=== PATIENT | female | born 2000 | race Caucasian/White ===

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

== ENCOUNTER 2022-11-07 15:56 | Inpatient (IN) | payer OTHER, SELFPAY ==
[2022-11-07] VITALS (9 sets, daily range): BP systolic 150–165; BP diastolic 78–99; PULSE 86–104; RESP 12–23; TEMP 35.7; O2SAT 97–99; BMI 39.1
[2022-11-07] MEDS: MAG HYDROX/ALUMINUM/SIMETH SUS 20 ML, LIDOCAINE VISCOUS 2% 15 ML PO (16:06)
[2022-11-07] MEDS: PANTOPRAZOLE 40 MG VIAL IV (19:31)
[2022-11-07] MEDS: SODIUM CHLORIDE 0.9% 1,000 ML 1000 ML IV (19:31)
[2022-11-07 19:32] LABS: Add Manual Diff / Slide Review NO; Basophils Absolute Auto 0 /uL (0-100); Basophils Percent Auto 0.4 % (0-2); Eosinophils Absolute Auto 100 /uL (0-450); Eosinophils Percent Auto 0.5 % (2-4); Hematocrit 40.2 % (36-46); Hemoglobin 13.5 g/dL (12.0-16.0); Lymphocytes Absolute Auto 1700 /uL (1100-4500); Lymphocytes Percent Auto 14.9 % (25-40); Mean Corpuscular HGB Conc 33.6 % (30-36); Mean Corpuscular Hemoglobin 27.9 PG (26-34); Monocytes Absolute Auto 700 /uL (0-900); Monocytes Percent Auto 5.9 % (3-14); Neutrophils Absolute Auto 9100 /uL (1500-7000); Neutrophils Percent Auto 78.3 % (50-75); Platelet Count 276 X10^3/uL (150-400); Red Blood Cell Count 4.85 X10^6/uL (4.0-5.2); Red Cell Distribution Width 14.4 % (11.6-14.8); White Blood Cell Count 11.6 X10^3/uL (4.5-11.0)
[2022-11-07 19:46] LABS: Alanine Aminotransferase 47 IU/L (<35); Albumin 4.3 g/dL (3.5-5.0); Alkaline Phosphatase 155 U/L (38-126); Aspartate Aminotransferase 99 IU/L (14-36); BUN Creatinine Ratio 14.5 (6-22); Bilirubin Total 0.8 mg/dL (0.2-1.3); Blood Urea Nitrogen 9 mg/dL (7-17); Calcium 9.5 mg/dL (8.4-10.2); Carbon Dioxide 27 mmol/L (22-32); Chloride 101 mmol/L (98-107); Estimated Glomerular Filt Rate > 60 mL/min (>60); Globulin 4.1 g/dL (1.7-4.1); Glucose 115 mg/dL (70-100); HEMOLYSIS < 15 (0-50); Lipase 125 U/L (23-300); Potassium 3.7 mmol/L (3.4-5.1); Sodium 140 mmol/L (137-145); Total Protein 8.4 g/dL (6.3-8.2)
[2022-11-07 19:58] LABS: Bacteria Urine Occasional (0-1); Culture Indicated Urine Cult Not Indicated; Other Crystals Urine 1+ Amorphous; RBC Urine None Seen (0-5/HPF); Squamous Epithelial Cell Urine 5-10 /HPF (0-5/HPF); WBC Urine None Seen (0-5/HPF)
--- NOTE | 2022-11-07 20:13 | ED.ABDPAIN ---
HPI - Abdominal Pain General Chief Complaint: Abdominal Pain Stated Complaint: intense stomach and chest pains Time Seen by Provider: 11/07/22 18:15 Source: patient Mode of arrival: Ambulatory History of Present Illness HPI narrative: 22-year-old female nonsmoker with history of reflux presents with her significant other and a chief complaint of severe epigastric pain over the course of the day. She states it is very intense and in her epigastrium as well as right upper quadrant and radiates to her back. She is nauseated but denies any vomiting. She is had no fever or chills. She denies any chest pain or shortness of breath. She denies any diarrhea, constipation or urinary complaints. Related Data Previous Rx's Medication Instructions Recorded bupropion HCl 150 mg 24 hr tablet, 300 mg PO QAM #180 tabs 04/06/22 extended release (Wellbutrin XL) lamotrigine 100 mg tablet 150 mg PO BEDTIME #45 tabs 10/25/22 norgestimate 0.25 mg-ethinyl 1 tab PO DAILY #84 tabs 10/27/22 estradiol 35 mcg tablet (Sprintec (28)) Allergies Allergy/AdvReac Type Severity Reaction Status Date / Time latex Allergy Severe skin Verified 11/07/22 16:03 blisters, redness and very itchy medroxyprogesterone AdvReac Severe Severe Verified 11/07/22 16:03 [From Depo-Provera] depression & anxiety; mood swings human papillomavirus AdvReac Intermediate Swelling Verified 11/07/22 16:05 vaccine, 9-valent redness [From Gardasil 9 (PF)] and pain at injection site Review of Systems Review of Systems Narrative: GENERAL: Denies chills, fatigue, malaise, fever, sweats. HEENT: Denies sinus pain, ear pain, sore throat, difficulty swallowing, dizziness. RESPIRATORY: Denies dyspnea, cough, wheezing, hemoptysis, sputum. CARDIOVASCULAR: Denies chest pain, palpitations, orthopnea, edema, GASTROINTESTINAL: See HPI : Denies dysuria, frequency, incontinence, hematuria, urinary retention. MUSCULOSKELETAL: denies weakness, joint pain, or bony pain SKIN: Denies rash, skin lesions, or other NEUROLOGIC: Denies weakness, headache, numbness, change in speech, confusion, seizures, incoordination. PSYCHIATRIC: No concerning psychosocial issues. 12 point review of systems is negative except for those stated above Patient History Medical History Anxiety Depression Elevated BP without diagnosis of hypertension Head injury Personal history of COVID-19 Recurrent dislocation of patella, right knee Surgical History Status post myringotomy with insertion of tube (10/29/04) Family History Grandmother Age: 74 Hypothyroidism Type 2 diabetes mellitus Mother Age: 45 Polycystic ovaries Obesity Hypothyroidism Grandmother Age: 72 Hypothyroidism Social History household members: significant other Smoking Status: Never smoker alcohol intake: never Smoking Status: Never smoker alcohol intake frequency: 0-2 drinks per day Substance Use Type: marijuana Exam Narrative Exam Narrative: GENERAL: [22] year old patient appears stated age. Well-developed patient, in mild distress. HEAD: Atraumatic. Normocephalic. EYES: Pupils equal round and reactive. Extraocular motions intact. No scleral icterus. No injection or drainage. ENT: Nose without bleeding, purulent drainage. Throat without erythema, tonsillar hypertrophy or exudate. Airway patent. NECK: Trachea midline. Non tender CARDIOVASCULAR: Regular rate and rhythm without murmurs, gallops, or rubs. RESPIRATORY: Clear to auscultation. Breath sounds equal bilaterally. No wheezes, rales, or rhonchi. GASTROINTESTINAL: Abdomen soft, tender in the epigastric, nondistended. EXTREMITIES: No edema or joint tenderness. BACK: Nontender without deformity or crepitance. No flank tenderness. NEURO: AOx3. SKIN: No rash or erythema of visible areas Initial Vital Signs Initial Vital Signs: Vital Signs Temperature 96.3 F L 11/07/22 16:00 Pulse Rate 99 H 11/07/22 16:00 Respiratory Rate 17 11/07/22 16:00 Blood Pressure 165/96 H 11/07/22 16:00 Pulse Oximetry 99 11/07/22 16:00 Oxygen Delivery Method Room Air 11/07/22 16:00 Course Orders Ordered: ED Orders 11/07/22 17:39 EKG-12 Lead Stat 11/07/22 19:14 Urine Microscopic Stat 11/07/22 19:26 Complete Blood Count AUTO DIFF Stat Comprehensive Metabolic Panel Stat Lipase Stat 11/07/22 20:18 US abdomen limited Stat 11/07/22 21:31 COVID19 -Nasal RAPID Stat Acetaminophen (Acetaminophen 325 Mg Tablet) 975 mg PO Q6H [facility] Last Admin: 11/07/22 22:53 Dose: 975 mg Documented By: KYLEE Docusate Sodium (Docusate 100 Mg Capsule) 100 mg PO BID [facility] Enoxaparin Sodium (Enoxaparin 30 Mg/0.3 Ml Syringe) 30 mg SUBCUT BID [facility] Hydromorphone HCl (Hydromorphone 0.5 Mg Inj) 0.5 mg IV Q2H PRN PRN Reason: Pain, Severe (7-10) Hydromorphone HCl (Hydromorphone 1 Mg Inj) 1 mg IV Q3H PRN PRN Reason: Breakthrough Pain Sodium Chloride (Normal Saline 0.9%) 1,000 mls @ 100 mls/hr IV CONT [facility] Last Admin: 11/07/22 22:54 Dose: 100 mls/hr Documented By: KYLEE Ampicillin Sodium/Sulbactam (Sodium 3 gm/ Sodium Chloride) 100 mls @ 200 mls/hr IV Q8H [facility] Ibuprofen (Ibuprofen 600 Mg Tablet) 800 mg PO Q6H [facility] Last Admin: 11/07/22 22:52 Dose: Not Given Documented By: KYLEE Ketorolac Tromethamine (Ketorolac 30 Mg/Ml Vial) 30 mg IV Q6H [facility] Stop: 11/08/22 15:00 Last Admin: 11/07/22 23:07 Dose: 30 mg Documented By: KYLEE Naloxone HCl (Naloxone 0.4 Mg/Ml Vial) 0.2 mg IV Q2MIN PRN PRN Reason: Opiate Reversal Ondansetron HCl (Ondansetron 4 Mg/2 Ml Inj) 4 mg IV Q4HR PRN PRN Reason: Nausea And Vomiting Last Admin: 11/07/22 23:47 Dose: 4 mg Documented By: HIAM Oxycodone HCl (Oxycodone Ir 5 Mg Tablet) 5 mg PO Q3H PRN PRN Reason: Pain, Moderate (4-6) Oxycodone HCl (Oxycodone Ir 10 Mg Tablet) 10 mg PO Q3H PRN PRN Reason: Pain, Severe (7-10) Discontinued Medications Al Hydrox/Mg Hydrox/Simethicone 20 ml/ Lidocaine HCl 15 ml 0 ml PO NOW ONE Stop: 11/07/22 16:05 Last Admin: 11/07/22 16:06 Dose: 35 ml Documented By: CASE Hydromorphone HCl (Hydromorphone 0.5 Mg Inj) 0.5 mg IV NOW ONE Stop: 11/07/22 20:20 Last Admin: 11/07/22 20:31 Dose: 0.5 mg Documented By: KEON Hydromorphone HCl (Hydromorphone 0.5 Mg Inj) 0.5 mg IV NOW ONE Stop: 11/07/22 21:29 Last Admin: 11/07/22 21:51 Dose: 0.5 mg Documented By: KEON Sodium Chloride (Normal Saline 0.9%) 1,000 mls @ 1,000 mls/hr IV BOLUS ONE Stop: 11/07/22 19:14 Last Infusion: 11/07/22 20:35 Dose: 0 mls/hr Documented By: Admin: 11/07/22 19:31 Dose: 1,000 mls/hr Documented By: REINIER Ampicillin Sodium/Sulbactam (Sodium 3 gm/ Sodium Chloride) 100 mls @ 200 mls/hr IV Q8H [facility] Last Admin: 11/07/22 23:25 Dose: Not Given Documented By: HIMA Ampicillin Sodium/Sulbactam (Sodium 3 gm/ Sodium Chloride) 100 mls @ 200 mls/hr IV NOW ONE Stop: 11/07/22 21:46 Last Admin: 11/07/22 23:02 Dose: 200 mls/hr Documented By: KYLEE Ondansetron HCl (Ondansetron 4 Mg/2 Ml Inj) 4 mg IV NOW ONE Stop: 11/07/22 20:20 Last Admin: 11/07/22 20:32 Dose: 4 mg Documented By: KEON Ondansetron HCl (Ondansetron 4 Mg Odt) 4 mg PO Q4HR PRN PRN Reason: Nausea And Vomiting Last Admin: 11/07/22 22:52 Dose: 4 mg Documented By: KYLEE Pantoprazole Sodium (Pantoprazole 40 Mg Vial) 40 mg IV NOW ONE Stop: 11/07/22 18:16 Last Admin: 11/07/22 19:31 Dose: 40 mg Documented By: REINIER Vital Signs Vital signs: Vital Signs - 8 hr 11/07/22 19:25 11/07/22 19:27 11/07/22 19:27 Pulse Rate 98 H 95 H Respiratory Rate 21 12 Blood Pressure 157/99 H Pulse Oximetry 99 98 Oxygen Delivery Method 11/07/22 19:30 11/07/22 19:30 11/07/22 20:00 Pulse Rate 90 89 Respiratory Rate 21 13 Blood Pressure 154/92 H Pulse Oximetry 98 99 Oxygen Delivery Method Room Air 11/07/22 20:01 11/07/22 20:01 11/07/22 20:30 Pulse Rate 86 Respiratory Rate 19 Blood Pressure 157/90 H 151/86 H Pulse Oximetry 99 Oxygen Delivery Method 11/07/22 20:30 11/07/22 21:00 11/07/22 21:30 Pulse Rate 103 H 98 H Respiratory Rate 13 23 Blood Pressure 150/78 H Pulse Oximetry 99 97 Oxygen Delivery Method 11/07/22 21:30 Pulse Rate 104 H Respiratory Rate 21 Blood Pressure Pulse Oximetry 98 Oxygen Delivery Method MDM - Abdominal Pain Lab Data 11/07/22 19:26 11/07/22 19:26 Labs: Lab Results 11/07/22 11/07/22 11/07/22 Range/Units 19:14 19:26 19:26 WBC 11.6 H (4.5-11.0) X10^3/uL RBC 4.85 (4.0-5.2) X10^6/uL Hgb 13.5 (12.0-16.0) g/dL Hct 40.2 (36-46) % MCV 83.0 (80-100) fL MCH 27.9 (26-34) PG MCHC 33.6 (30-36) % RDW 14.4 (11.6-14.8) % Plt Count 276 (150-400) X10^3/uL Neut % (Auto) 78.3 H (50-75) % Lymph % (Auto) 14.9 L (25-40) % [place] % (Auto) 5.9 (3-14) % Eos % (Auto) 0.5 L (2-4) % Baso % (Auto) 0.4 (0-2) % Neut # (Auto) 9100 H (7779-5487) /uL Lymph # (Auto) 1700 (9500-3959) /uL [place] # (Auto) 700 (0-900) /uL Eos # (Auto) 100 (0-450) /uL Baso # (Auto) 0 (0-100) /uL Sodium 140 (137-145) mmol/L Potassium 3.7 (3.4-5.1) mmol/L Chloride 101 (98-107) mmol/L Carbon Dioxide 27 (22-32) mmol/L BUN 9 (7-17) mg/dL Creatinine 0.62 (0.52-1.04) mg/dL Estimated GFR > 60 (>60) mL/min BUN/Creatinine Ratio 14.5 (6-22) Glucose 115 H (70-100) mg/dL Calcium 9.5 (8.4-10.2) mg/dL Total Bilirubin 0.8 (0.2-1.3) mg/dL AST 99 H (14-36) IU/L ALT 47 H (<35) IU/L Alkaline Phosphatase 155 H (38-126) U/L Total Protein 8.4 H (6.3-8.2) g/dL Albumin 4.3 (3.5-5.0) g/dL Globulin 4.1 (1.7-4.1) g/dL Albumin/Globulin Ratio 1.0 (1.0-2.8) Lipase 125 (23-300) U/L Urine RBC None seen (0-5/HPF) Urine WBC None seen (0-5/HPF) Ur Squamous Epith Cells 5-10 /hpf H (0-5/HPF) Other Crystals 1+ amorphous Urine Bacteria Occasional (0-1) (None) Ur Culture Indicated? Cult not indicated Point of care testing: Point of Care Testing Test Results Negative Urine Dip Bedside Urine Glucose Negative Bedside Urine Bilirubin - Negative Bedside Urine Ketone - Negative Urine Specific [place] 1.010 Bedside Urine Occult Blood ++ Bedside Urine pH 7.5 Bedside Urine Protein - Negative Bedside Urine Urobilinogen - Negative Bedside Urine Nitrite - Negative Bedside Urine Leukocytes - Negative Esterase MDM Narrative Medical decision making narrative: CC: 22-year-old female with epigastric pain Complicating co-morbidities: History of GERD, BMI 39 Data collected from: Patient Medical records reviewed: Prior notes reviewed in our EMR Differential considered, but not limited to: Gallbladder disease, pancreatitis, esophageal spasm, pulmonary embolism, cardiac disease versus other Exam documented above, pertinent findings include: Severe epigastric pain on exam, positive Lynne's sign, heart rate regular, lungs clear, nonlabored breathing Lab Test results independently reviewed as above. Pertinent findings: Minimal leukocytosis and relative left shift, no signs of anemia, electrolytes, renal function unremarkable, bilirubin 0.8, LFTs are minimally elevated including alk-phos of 155 Independently reviewed EKG as above Imaging studies independently reviewed: Symptomatic gallstones Consultations: Discussed with on-call surgeon, Dr. Loving, happy to accept on her service Treatments: fluids, zofran, dilaudid Re-evaluations: Some improvement, though patient did require multiple doses of pain medication Discussion: Patient with epigastric pain, right upper quadrant pain that radiates to her back with slight bump in LFTs and ultrasound demonstrating gallstones with possible pericholecystic fluid requires hospitalization for ongoing treatment, antibiotics, pain control, possible surgical intervention Discharge Plan Departure Patient Disposition: Admitted as Observation Clinical Impression: Acute cholecystitis Admit Date/Time: 11/07/22 21:30 Admit Provider: Isela Loving
--- NOTE | 2022-11-07 20:18 | DI.US.S_ITS ---
PROCEDURE: US ABDOMEN LIMITED INDICATIONS: EPIGASTRIC PAIN TECHNIQUE: Real-time focused scanning was performed of the abdomen, with image documentation. COMPARISON: [facility], US, US ABDOMEN COMPLETE, 10/07/2021, 12:34. FINDINGS: The liver demonstrates increased no focal mass lesions. The gallbladder demonstrates 3-4 small mobile gallstones measuring up to 0.8 cm. No wall thickening or pericholecystic fluid. Patient was reportedly tender on examination. No definite intrahepatic biliary ductal dilatation. There is extrahepatic ductal dilatation with the common bile duct measuring up to 1.0 cm. Visualized pancreas appears unremarkable sonographically. IMPRESSION: 1. Cholelithiasis without evidence of cholecystitis. 2. Mild extrahepatic biliary ductal dilatation. Choledocholithiasis or biliary obstruction cannot be excluded and correlation is recommended clinically. Dictated by: Jim Rea M.D. on 11/07/2022 at 21:32 Approved by: Jim Rea M.D. on 11/07/2022 at 21:38
[2022-11-07] MEDS: HYDROMORPHONE 0.5 MG INJ IV ×2 (20:31→21:51)
[2022-11-07] MEDS: ONDANSETRON 4 MG/2 ML INJ IV ×2 (20:32→23:47)
--- NOTE | 2022-11-07 21:55 | PM.HP.1 ---
History of Present Illness History of Present Illness Date Patient Seen: 11/08/22 Time Patient Seen: 11:00 Chief complaint: intense stomach and chest pains Narrative: Ms. Candelaria is a healthy 22-year-old obese female who started having abdominal pain about 4 or 5 days ago. She said it was continuous but off and on but in the last day or so became intense and the pain was so severe that it caused her to lose her breath. She could barely say a full sentence she felt as though she was having heart attack. She had never had pain like this before. Although she may have had some ?issues? with her stomach in the past. She is was not able to connect the symptoms with any particular type of food but she did say that before this attack she had some fried food. She is not ever had surgery before but many people in her family have had gallbladder surgery. She is no family history of problems with anesthesia or bleeding or blood clotting disorders. She reports some nausea as well associated with these symptoms. [facility] Medical History Anxiety Depression Elevated BP without diagnosis of hypertension Head injury Personal history of COVID-19 Recurrent dislocation of patella, right knee Surgical History Status post myringotomy with insertion of tube (10/29/04) Family History Grandmother Age: 74 Hypothyroidism Type 2 diabetes mellitus Mother Age: 45 Polycystic ovaries Obesity Hypothyroidism Grandmother Age: 72 Hypothyroidism Social History household members: significant other Smoking Status: Never smoker alcohol intake: never Meds Home Medications and Allergies Home Medications Medication Instructions Recorded Confirmed Type bupropion HCl 150 mg 24 hr tablet, 300 mg PO QAM #180 tabs 04/06/22 11/07/22 Rx extended release (Wellbutrin XL) lamotrigine 100 mg tablet 150 mg PO BEDTIME #45 tabs 10/25/22 11/07/22 Rx norgestimate 0.25 mg-ethinyl 1 tab PO DAILY #84 tabs 10/27/22 11/07/22 Rx estradiol 35 mcg tablet (Sprintec (28)) Allergies Allergy/AdvReac Type Severity Reaction Status Date / Time latex Allergy Severe skin Verified 11/07/22 16:03 blisters, redness and very itchy medroxyprogesterone AdvReac Severe Severe Verified 11/07/22 16:03 [From Depo-Provera] depression & anxiety; mood swings human papillomavirus AdvReac Intermediate Swelling Verified 11/07/22 16:05 vaccine, 9-valent redness [From Gardasil 9 (PF)] and pain at injection site Exam Vital Signs (past 8 hours): - 11/07/22 16:00 11/07/22 19:25 11/07/22 19:27 Temperature 96.3 F L Pulse Rate 99 H 98 H Respiratory Rate 17 21 Blood Pressure 165/96 H 157/99 H Pulse Oximetry 99 99 Oxygen Delivery Method Room Air 11/07/22 19:27 11/07/22 19:30 11/07/22 19:30 Temperature Pulse Rate 95 H 90 Respiratory Rate 12 21 Blood Pressure 154/92 H Pulse Oximetry 98 98 Oxygen Delivery Method Room Air 11/07/22 20:00 11/07/22 20:01 11/07/22 20:01 Temperature Pulse Rate 89 86 Respiratory Rate 13 19 Blood Pressure 157/90 H Pulse Oximetry 99 99 Oxygen Delivery Method 11/07/22 20:30 11/07/22 20:30 11/07/22 21:00 Temperature Pulse Rate 103 H 98 H Respiratory Rate 13 23 Blood Pressure 151/86 H Pulse Oximetry 99 97 Oxygen Delivery Method Oxygen Delivery Method Room Air Const General: cooperative, healthy appearing and comfortable Nutritional Appearance: obese HENVA Head: normal to inspection Eyes General: appearance normal, both eyes and all related structures Resp Effort & Inspection: normal respiratory effort and able to speak in complete sentences Cardio Pulses: radial pulses present GI Inspection: obesity Palpation: soft and tender (Right upper quadrant. Positive Lynne sign) Skin General: no rashes or lesions noted Extrem General: normal to inspection Objective Labs 11/07/22 19:26 11/07/22 19:26 Labs: Laboratory Results - last 24 hr 11/07/22 11/07/22 11/07/22 19:14 19:26 19:26 WBC 11.6 H RBC 4.85 Hgb 13.5 Hct 40.2 MCV 83.0 MCH 27.9 MCHC 33.6 RDW 14.4 Plt Count 276 Neut % (Auto) 78.3 H Lymph % (Auto) 14.9 L [place] % (Auto) 5.9 Eos % (Auto) 0.5 L Baso % (Auto) 0.4 Neut # (Auto) 9100 H Lymph # (Auto) 1700 [place] # (Auto) 700 Eos # (Auto) 100 Baso # (Auto) 0 Sodium 140 Potassium 3.7 Chloride 101 Carbon Dioxide 27 BUN 9 Creatinine 0.62 Estimated GFR > 60 BUN/Creatinine Ratio 14.5 Glucose 115 H Calcium 9.5 Total Bilirubin 0.8 AST 99 H ALT 47 H Alkaline Phosphatase 155 H Total Protein 8.4 H Albumin 4.3 Globulin 4.1 Albumin/Globulin Ratio 1.0 Lipase 125 Urine RBC None seen Urine WBC None seen Ur Squamous Epith Cells 5-10 /hpf H Other Crystals 1+ amorphous Urine Bacteria Occasional (0-1) Ur Culture Indicated? Cult not indicated Assessment & Plan Assessment and plan (1) Acute cholecystitis: Status: Acute Assessment & Plan narrative: Labs have been reviewed and she does have a mild leukocytosis at 11. Her total bilirubin is normal at 0.8. She has a mild transaminase elevation of AST 99 and ALT 47 her alk-phos is 155. Her gallbladder ultrasound did show multiple stones no severe signs on the ultrasound of pericholecystic fluid or wall thickening however clinically she is very tender in the right upper quadrant. Clinically I think this is acute cholecystitis and I discussed with Ms. Ventura the diagnosis. I offered her the opportunity to try some antibiotics and pain medicine and possibly follow-up as outpatient but due to the level of pain and the high index of suspicion for gallbladder as the etiology she would rather undergo cholecystectomy prior to discharge which I think is very reasonable given the diagnosis of acute cholecystitis. I discussed with her the risks benefits and alternatives of laparoscopic cholecystectomy including but not limited to injury to the common bile duct, injury to other structures requiring surgery to repair them, bleeding or infection or need for ERCP postoperatively. Generally there are reasons why if something does go wrong during the operation she may have to return to the hospital for treatment or undergo an additional procedure surgery. The chances of complications are very low but could be serious and Ms. Candelaria does understand and would like to proceed with laparoscopic possible open cholecystectomy. Her questions were answered.
[2022-11-07 22:17] LABS: COVID19 -Nasal RAPID Negative (Negative)
[2022-11-07] MEDS: ONDANSETRON 4 MG ODT PO (22:52)
[2022-11-07] MEDS: ACETAMINOPHEN 325 MG TABLET 975 MG PO (22:53)
[2022-11-07] MEDS: SODIUM CHLORIDE 0.9% 1,000 ML 100 ML IV (22:54)
[2022-11-07] MEDS: AMPICILLIN/SULBACTAM 3 GM 3 GM in SODIUM CHLORIDE 0.9% 100 ML IV (23:02)
[2022-11-07] MEDS: KETOROLAC 30 MG/ML VIAL IV (23:07)
[2022-11-08] MEDS: HYDROMORPHONE 0.5 MG INJ IV ×5 (04:42→21:12)
[2022-11-08] MEDS: KETOROLAC 30 MG/ML VIAL IV ×2 (04:42→09:33)
[2022-11-08] MEDS: ONDANSETRON 4 MG/2 ML INJ IV ×4 (04:43→15:52)
[2022-11-08] MEDS: AMPICILLIN/SULBACTAM 3 GM 3 GM in SODIUM CHLORIDE 0.9% 100 ML IV ×3 (06:00→18:38)
[2022-11-08 07:00] VITALS: BP 142/80; PULSE 84; RESP 16; TEMP 36.7; O2SAT 98
[2022-11-08 09:33] VITALS: BP 142/80; PULSE 84
[2022-11-08] MEDS: PROCHLORPERAZINE 10 MG/2 ML VIAL IV ×2 (09:33→18:39)
[2022-11-08] MEDS: ENOXAPARIN 30 MG/0.3 ML SYRINGE SUBCUT ×2 (09:47→20:54)
[2022-11-08] MEDS: SODIUM CHLORIDE 0.9% 1,000 ML 100 ML IV ×2 (09:48→20:53)
--- NOTE | 2022-11-08 10:56 | CM.DANOTE ---
Initial Discharge Planning Assessment: Case reviewed, met with patient. Introduced self and role. Payer: Edy SMITH and self pay PCP: Roc Guy 22 year old female admitted yesterday with nausea and vomiting. PMH DM2 and hx of reflux with severe epigastric pain. Surgical, Dr Loving, consulted this morning. Patient lives in [place] with her significant other. She is independent and drives. Plan: When medically/surgically cleared, discharge home to care of S.O. OZ Discharge Planning/Care Management CM Discharge Assessment Start: 11/08/22 10:53 Freq: Status: Active Protocol: Document 11/08/22 10:54 SJ (Rec: 11/08/22 10:56 [id number]) Discharge Planning Assessment Assigned English Drawer Suyapa Walker RN/TAWANAP Advance Directives? No History Provided By Patient Prior Living Arrangements House Household Members significant other Type of transporation used prior to Drives own vehicle admit Independent with ADL's Yes Is patient alert and oriented? Yes Caregiver for Another No Barriers to Discharge No Discharge Plan Home Referrals Initiated None needed Review Status In Process Next Review Type Continued Stay Review
[2022-11-08 18:39] VITALS: BP 158/106; PULSE 69
[2022-11-08 19:00] VITALS: O2SAT 99
[2022-11-08 19:40] VITALS: BP 153/92; PULSE 72; RESP 18; TEMP 36.3; O2SAT 99
[2022-11-08] MEDS: lamoTRIgine 100 MG TABLET 150 MG PO (20:53)
[2022-11-08] MEDS: buPROPion XL 150 MG TAB 300 MG PO (20:53)
[2022-11-08] MEDS: DOCUSATE 100 MG CAPSULE PO (20:55)
[2022-11-08] MEDS: CALCIUM CARBONATE 500 MG TAB 1000 MG PO (22:31)
[2022-11-08] MEDS: SCOPOLAMINE 1 PATCH TOP (22:32)
[2022-11-09] VITALS (15 sets, daily range): BP systolic 119–173; BP diastolic 59–114; PULSE 60–142; RESP 16–21; TEMP 36.1–36.6; O2SAT 94–97; BMI 39.1
--- NOTE | 2022-11-09 | PATH_ITS ---
[facility] Accession Number: [id number] No. of containers..01 Tissue . 01 Material submitted: . gallbladder - GALLBLADDER . 01 Diagnosis: Gallbladder, Cholecystectomy: Chronic cholecystitis and cholelithiasis. Negative for dysplasia and neoplasia. MRV 11/11/2022 1242 Local . 01 Electronically signed: . Jessica Kelly MD, Pathologist NPI- [id number] . 01 Gross description: . The specimen is received in formalin labeled with the patient's name, , and gallbladder, and consists of an intact gallbladder measuring 9.3 x 3.4 x 2.1 cm with scruggs smooth serosa and a rough and unremarkable hepatic surface. The cystic duct is received patent, is inked blue, and two scruggs pericystic lymph node candidates are identified ranging from 0.6 to 0.8 cm in greatest dimension. The lumen contains pale green bile ranging in consistency from mucoid to semi-solid. Multiple yellow-orange bosselated calculi are identified measuring up to 0.7 cm in greatest dimension grossly obstructing the cystic duct. The mucosa is scruggs and velvety with numerous pinpoint yellow areas consistent with cholesterol. No polyps or lesions are grossly identified. The stark average 0.2 cm thick. Engraver Lettering sections to include the cystic duct margin, both intact lymph node candidates, and full thickness sections are submitted in cassettes A1-A2. ([id number]) /MRV 11/10/2022 1819 Local . 01 Pathologist provided ICD-10: K81.1 . 01 CPT . 685594 Specimen Comment: A courtesy copy of this report has been sent to [phone] Performed at: 01 [facility] [address] [place] [address] [id number] MD Jim Driver MD Phone: [phone]
[2022-11-09] MEDS: HYDROMORPHONE 0.5 MG INJ IV (00:31)
[2022-11-09] MEDS: AMPICILLIN/SULBACTAM 3 GM 3 GM in SODIUM CHLORIDE 0.9% 100 ML IV ×4 (00:31→19:25)
[2022-11-09] MEDS: PROCHLORPERAZINE 10 MG/2 ML VIAL IV ×3 (00:32→13:19)
[2022-11-09] MEDS: HYDROMORPHONE 1 MG INJ IV ×4 (02:28→13:19)
[2022-11-09] MEDS: ONDANSETRON 4 MG/2 ML INJ IV ×2 (02:30→19:33)
[2022-11-09] MEDS: SODIUM CHLORIDE 0.9% 1,000 ML 100 ML IV (08:30)
[2022-11-09] MEDS: IBUPROFEN 600 MG TABLET 800 MG PO ×2 (08:31→19:26)
[2022-11-09] MEDS: DOCUSATE 100 MG CAPSULE PO ×2 (08:31→21:02)
[2022-11-09] MEDS: ENOXAPARIN 30 MG/0.3 ML SYRINGE SUBCUT (08:44)
[2022-11-09] MEDS: ACETAMINOPHEN 325 MG TABLET 975 MG PO ×2 (08:46→19:25)
--- NOTE | 2022-11-09 10:22 | PM.PREOP ---
Pre-operative Note COVID-19 COVID-19 status: Negative Criteria for continued procedure: Continuing or worsening of significant or severe pain Interval Note History & Physical reviewed/Exam performed by Physician: Yes Changes to H&P: No
[2022-11-09] MEDS: LACTATED RINGERS 1,000 ML 84 ML IV ×2 (10:34→11:11)
--- NOTE | 2022-11-09 10:40 | PC.NURSE ---
Addendum entered by Kristi Cope R.N. 11/09/22 19:50: dressings changed per Dr Richardson instructions. float RN Roc assisted w/ this, reports approx 1.5inch blood clot removed from umbilicus puncture site. checked 1-2 hours after dressings changed, no saturation noted on clean dressings. patient is feeling a little bit better, reports pain 6/10 w/ deep breaths, and has been holding still for a while. strongly encouraged to move about the bed more. RT will assist w/ IS and flutter this NOC. patient tolerated OOB to bathroom at shift change, reports dizziness. but this ended fairly quickly. encouraged to march in place and take some deep breaths before heading to the bathroom. she became very pale and lips white when she stood up. mom assisted w/ this. teaching provided thruout the shift for bf of patient and patient. they all state they understand the instructions. tylenol and ibuprofen for BTP, patient encouraged to try this and not the narcotic. dressings provided for d/c home as we anticipated d/c earlier in the shift. ok to stay overnight x [address] feliz. report to NOC. Addendum entered by Kristi Cope R.N. 11/09/22 16:07: 1300: returned from surgery, recovered well. HR 130s post op, sang drainage on dressings. drowsy, pale. rouses easily. 1500: HR up to 145, sustaining 130s. mod amt sang drainage on all lap sites. new orders received to give LR bolus 500cc. (given) change dressings. (will do after she has had ice packs on abdomen for a little longer.) Original Note: 1015: Carrol here from OR to take patient down for surgery. mom accompanied patient for intake. pain reportedly improved from 7/10 to 1/10 w/ PRN dilauded 1mg PIV. left floor in her bed.
--- NOTE | 2022-11-09 11:00 | SUR.OPER ---
Supine on padded OR bed, head on pillow, arms secured on padded arm boards at <90 degrees abduction, legs uncrossed, safety belt at thigh, tape over blanket over lower legs.
[2022-11-09] MEDS: BUPIVACAINE 0.5% (PF) 20 ML, EPINEPHrine 0.1 MG INJ (11:13)
--- NOTE | 2022-11-09 11:41 | CM.DPC ---
Addendum entered by MAYITO Cannon 11/09/22 12:58: ADD; Per Surgeon, pt tolerated procedure well and likely can d/c home this afternoon with outpt f/u. BF Original Note: DCP Cont: Per Surgeon, pt on the schedule for surgery today for Lap Roopa and per glass edger pt on OR schedule today at 1045. Per RN, pt off floor for surgery and mother bedside and going down with pt for support. Pt active, independ and has local boyfriend and family for support and pending progress after surgery can likely d/c home later today vs tomorrow. Plan: SW to follow after Lap Roopa surg today to determine any d/c planning needs but likely home with supportive family support. MAYITO Cannon
--- NOTE | 2022-11-09 11:42 | PM.OP.1 ---
Operative Date/Time/Diagnoses Date of procedure: 11/09/22 Time of procedure: 11:42 Pre-op diagnosis: Acute cholecystitis Post-op diagnosis: same Procedure & Clinicians Procedure: Laparoscopic cholecystectomy Same procedure as scheduled: Yes Indications: Acute cholecystitis Surgeon: Jessica Savage Click Yes if Unassisted: Yes Anesthesia Type: General Operative Notes Findings: Acute cholecystitis Closure Type: primary Specimen(s): other (Gallbladder) Estimated Blood Loss (mL): 50 Procedure in detail: Preop diagnosis: Acute cholecystitis Postop diagnosis: Same Operative procedure: Laparoscopic cholecystectomy Surgeon: Ebony Savage MD Findings: Acute cholecystitis Procedure: Patient placed in a supine position. Prepped and draped sterile fashion to expose her abdomen. Supraumbilical port site was placed using open technique a 12 mm port. Insufflation began all other ports were placed under direct vision including a 10 mm port in the midepigastrium and 2 5 mm ports in the right lateral abdomen. Gallbladder was decompressed using electrocautery and suctioned. It was then grasped pushed cephalad for exposure. Cystic duct and cystic artery with both dissected free. Cystic artery was clipped once distally once proximally and transected. Cystic duct was clipped twice proximally once distally and transected. Gallbladder was removed from the fossa bed electrocautery and good hemostasis. The gallbladder was placed into an Endo-Catch bag and pulled through the infraumbilical port site intact. No spillage of stones. The surgical site was irrigated to a clear return prior to removal of ports and beginning closure. Closure consisted of interrupted 2-0 Vicryl for fascial closure of the supraumbilical port site. Skin was closed a running 4-0 Vicryl. Steri-Strips and sterile dressings were placed. Patient was awakened, extubated, taken to recovery room in stable condition with needle, instrument, sponge counts correct in the case. Blood loss: 50 mL Specimen: Gallbladder Complications: none Post-operative Condition: stable Disposition: PACU
[2022-11-09] MEDS: OXYCODONE IR 5 MG TABLET PO (11:56)
[2022-11-09] MEDS: LACTATED RINGERS 500 ML 1000 ML IV (15:36)
[2022-11-09 15:37] LABS: Add Manual Diff / Slide Review NO; Basophils Absolute Auto 0 /uL (0-100); Basophils Percent Auto 0.1 % (0-2); Eosinophils Absolute Auto 0 /uL (0-450); Hematocrit 32.8 % (36-46); Hemoglobin 10.8 g/dL (12.0-16.0); Lymphocytes Absolute Auto 800 /uL (1100-4500); Lymphocytes Percent Auto 5.8 % (25-40); Mean Corpuscular HGB Conc 32.9 % (30-36); Mean Corpuscular Hemoglobin 27.6 PG (26-34); Mean Corpuscular Volume 83.9 fL (80-100); Monocytes Absolute Auto 200 /uL (0-900); Monocytes Percent Auto 1.7 % (3-14); Neutrophils Absolute Auto 12600 /uL (1500-7000); Neutrophils Percent Auto 92.4 % (50-75); Platelet Count 318 X10^3/uL (150-400); Red Blood Cell Count 3.91 X10^6/uL (4.0-5.2); Red Cell Distribution Width 14.3 % (11.6-14.8); White Blood Cell Count 13.6 X10^3/uL (4.5-11.0)
[2022-11-09] MEDS: lamoTRIgine 100 MG TABLET 150 MG PO (21:01)
[2022-11-09] MEDS: CELECOXIB 200 MG CAPSULE PO (21:02)
--- NOTE | 2022-11-09 23:25 | PC.NURSE ---
Patient is alert and oriented although sleepy and very soft spoken. Breath sounds diminished throughout and respirations are shallow; discussed importance of CDB and encouraged to splint incision to help with pain. RA sat is 96%. HRR but tachy at 120 bpm; per previous RN MD is aware of tachycardia. Had nausea at shift change and was medicated with Zofran but denies nausea at time of assessment. BT absent; abdomen is soft but tender. Denies dysuria, frequency or urgency with urination. Is able to move herself in bed and is provided SBA when up to bathroom. Dressings to abdomen are CDI except for epigastric area dressing which has serosanguinous drainage on but within previous outlined markings. Did have abdominal pain at shift change and was medicated with Tylenol + Ibuprofen and ice pack applied with relief. Refused to wear SCD's so reminded to ankle wave. Fall risk score is moderate and bed alarm is activated.
[2022-11-09] MEDS: OXYCODONE IR 10 MG TABLET PO (23:36)
[2022-11-10] MEDS: SODIUM CHLORIDE 0.9% 1,000 ML 100 ML IV (00:25)
[2022-11-10] MEDS: AMPICILLIN/SULBACTAM 3 GM 3 GM in SODIUM CHLORIDE 0.9% 100 ML IV ×4 (00:25→18:05)
[2022-11-10 03:00] VITALS: BP 146/85; PULSE 110; RESP 20; TEMP 36.9; O2SAT 96
[2022-11-10] MEDS: IBUPROFEN 600 MG TABLET 800 MG PO (03:50)
[2022-11-10] MEDS: ACETAMINOPHEN 325 MG TABLET 975 MG PO ×4 (03:50→21:20)
[2022-11-10] MEDS: OXYCODONE IR 10 MG TABLET PO ×4 (03:54→23:49)
[2022-11-10 06:38] LABS: Add Manual Diff / Slide Review NO; Basophils Absolute Auto 0 /uL (0-100); Basophils Percent Auto 0.3 % (0-2); Eosinophils Absolute Auto 0 /uL (0-450); Eosinophils Percent Auto 0.1 % (2-4); Hematocrit 29.5 % (36-46); Hemoglobin 9.7 g/dL (12.0-16.0); Lymphocytes Absolute Auto 2100 /uL (1100-4500); Lymphocytes Percent Auto 18.2 % (25-40); Mean Corpuscular HGB Conc 32.9 % (30-36); Mean Corpuscular Hemoglobin 27.6 PG (26-34); Monocytes Absolute Auto 700 /uL (0-900); Monocytes Percent Auto 6.3 % (3-14); Neutrophils Absolute Auto 8900 /uL (1500-7000); Neutrophils Percent Auto 75.1 % (50-75); Platelet Count 265 X10^3/uL (150-400); Red Blood Cell Count 3.51 X10^6/uL (4.0-5.2); Red Cell Distribution Width 14.6 % (11.6-14.8); White Blood Cell Count 11.8 X10^3/uL (4.5-11.0)
[2022-11-10 06:54] LABS: Alanine Aminotransferase 480 IU/L (<35); Albumin 3.4 g/dL (3.5-5.0); Albumin Globulin Ratio 1.1 (1.0-2.8); Alkaline Phosphatase 269 U/L (38-126); Aspartate Aminotransferase 272 IU/L (14-36); BUN Creatinine Ratio 14.3 (6-22); Blood Urea Nitrogen 9 mg/dL (7-17); Calcium 8.5 mg/dL (8.4-10.2); Carbon Dioxide 26 mmol/L (22-32); Chloride 102 mmol/L (98-107); Estimated Glomerular Filt Rate > 60 mL/min (>60); Globulin 3.1 g/dL (1.7-4.1); Glucose 116 mg/dL (70-100); HEMOLYSIS < 15 (0-50); Potassium 3.4 mmol/L (3.4-5.1); Sodium 134 mmol/L (137-145); Total Protein 6.5 g/dL (6.3-8.2)
[2022-11-10 07:53] VITALS: BP 156/92; PULSE 114; RESP 18; TEMP 37.2; O2SAT 97
[2022-11-10] MEDS: buPROPion XL 150 MG TAB 300 MG PO (08:34)
[2022-11-10] MEDS: CELECOXIB 200 MG CAPSULE PO ×2 (08:35→21:20)
[2022-11-10] MEDS: DOCUSATE 100 MG CAPSULE PO ×2 (08:35→21:20)
--- NOTE | 2022-11-10 09:55 | DI.NM.S_ITS ---
PROCEDURE: NM HIDA NO EJECTION FRACTION RADIOPHARMACEUTICAL: 5.3 mCi Tc-99m mebrofenin IV. INDICATIONS: bile leak post op TECHNIQUE: Following intravenous administration of Tc-99m mebrofenin, sequential anterior abdominal images were obtained through at least 60 minutes. COMPARISON: [facility], CT, CT ABDOMEN PELVIS W CON, 11/10/2022, 16:47. FINDINGS: There is normal tracer uptake and excretion by the liver. There is no visualization of intrahepatic ducts or common bile duct. There is excretion of contrast into the gallbladder fossa. IMPRESSION: Findings are suspicious for post cholecystectomy bile leak. Dictated by: Trey Rojas M.D. on 11/10/2022 at 17:41 Approved by: Trey Rojas M.D. on 11/10/2022 at 17:43
[2022-11-10] MEDS: IBUPROFEN 400 MG TABLET 800 MG PO ×3 (10:04→21:20)
[2022-11-10] MEDS: POTASSIUM CHLORIDE 20 MEQ TAB 40 MEQ PO (10:04)
--- NOTE | 2022-11-10 10:34 | PM.PNPO.1 ---
Subjective Subjective Date Patient Seen: 11/10/22 Time Patient Seen: 10:35 Interval history: Anorexia, bleeding has stopped. Exam Vital Signs (past 8 hours): - 11/10/22 03:00 11/10/22 07:53 11/10/22 07:53 Temperature 98.4 F 98.9 F Pulse Rate 110 H 114 H Respiratory Rate 20 18 Blood Pressure 146/85 H 156/92 H Pulse Oximetry 96 97 97 Oxygen Delivery Method Room Air Oxygen Flow Rate 0 0 0 Oxygen Delivery Method Room Air Oxygen Flow Rate 0 Narrative Exam Narrative: wounds now dry dressing. abdomen is benign Objective Labs 11/10/22 05:42 11/10/22 05:42 Labs: Laboratory Results - last 24 hr 11/09/22 11/10/22 11/10/22 15:28 05:42 05:42 WBC 13.6 H 11.8 H RBC 3.91 L 3.51 L Hgb 10.8 L 9.7 L Hct 32.8 L 29.5 L MCV 83.9 84.0 MCH 27.6 27.6 MCHC 32.9 32.9 RDW 14.3 14.6 Plt Count 318 265 Neut % (Auto) 92.4 H 75.1 H Lymph % (Auto) 5.8 L 18.2 L [place] % (Auto) 1.7 L 6.3 Eos % (Auto) 0.0 L 0.1 L Baso % (Auto) 0.1 0.3 Neut # (Auto) 74671 H 8900 H Lymph # (Auto) 800 L 2100 [place] # (Auto) 200 700 Eos # (Auto) 0 0 Baso # (Auto) 0 0 Sodium 134 L Potassium 3.4 Chloride 102 Carbon Dioxide 26 BUN 9 Creatinine 0.63 Estimated GFR > 60 BUN/Creatinine Ratio 14.3 Glucose 116 H Calcium 8.5 Total Bilirubin 3.0 H AST 272 H ALT 480 H Alkaline Phosphatase 269 H D Total Protein 6.5 Albumin 3.4 L Globulin 3.1 Albumin/Globulin Ratio 1.1 PFSH Medical History Anxiety Depression Elevated BP without diagnosis of hypertension Head injury Personal history of COVID-19 Recurrent dislocation of patella, right knee Surgical History Status post myringotomy with insertion of tube (10/29/04) Family History Grandmother Age: 74 Hypothyroidism Type 2 diabetes mellitus Mother Age: 45 Polycystic ovaries Obesity Hypothyroidism Grandmother Age: 72 Hypothyroidism Social History household members: significant other Smoking Status: Never smoker alcohol intake: never Assessment & Plan Post-op Postoperative Procedures: Procedures Operation Date: 11/09/22 10:45 Actual Procedure Side Surgeon p Laparoscopic Cholecystectomy Not Applicable Jessica Savage MD Postoperative status: anemia Postoperative status narrative: Post op acute blood loss anemia Elevated LFT's suggesting possible bile leak vs biliary obstruction from stones or sludge Postoperative plan narrative: NPO HIDA scan to rule out bile leak. May require transfer to facility that can do ERCP. Continue antibiotic Time Spent With Patient Time with patient: 25 - 35 minutes
[2022-11-10 11:40] VITALS: BP 146/96; PULSE 113; RESP 18; TEMP 36; O2SAT 98
[2022-11-10] MEDS: HYDROMORPHONE 0.5 MG INJ IV ×2 (16:02→22:33)
[2022-11-10] MEDS: lamoTRIgine 100 MG TABLET 150 MG PO (16:32)
--- NOTE | 2022-11-10 16:34 | DI.CT.S_ITS ---
PROCEDURE: CT ABDOMEN PELVIS W CON INDICATIONS: 22-year-old female with abdominal pain status post laparoscopic cholecystectomy postop day 2 TECHNIQUE: After the administration of intravenous contrast, axial sections acquired from the lung bases to the pubic symphysis. Coronal and sagittal reformats were performed. For radiation dose reduction, the following was used: automated exposure control, adjustment of mA and/or kV according to patient size. COMPARISON: None. FINDINGS: Lower thorax: Bibasilar atelectasis Liver: Normal in size and attenuation. No contour deformity present. Biliary system: Cholecystectomy. No intra or extrahepatic bile duct dilation. Soft tissue air in the anterior abdominal wall and small amount of free fluid in the abdomen and pelvis noted. Pancreas: Unremarkable without mass or inflammation evident. Spleen: Normal in size and density. Adrenals: Normal morphology and density. Reproductive system: Unremarkable as visualized. Urinary system: Normal renal size and attenuation. No renal calculi, hydronephrosis, or solid mass present. Urinary bladder unremarkable. Gastrointestinal system: The bowel is unremarkable without evidence of bowel obstruction or inflammation. The stomach appears unremarkable. Appendix: No findings to suggest acute appendicitis. Peritoneal spaces: No mesenteric or retroperitoneal adenopathy. No free air. No free fluid. Vasculature: The IVC, aorta and iliac vasculature are unremarkable. Abdominal wall: Free air in the anterior abdominal wall as well as probable periumbilical hematoma measuring 5.8 by 2.4 cm Musculoskeletal: Normal bone mineralization. No acute fractures. IMPRESSION: 1. Periumbilical subcutaneous probable hematoma measures 5.8 x 2.4 cm. Postprocedural subcutaneous air within appropriate limits. 2. Mild free fluid in the abdomen and pelvis is probably within expected postoperative limits. Consider short-term follow-up to exclude bile leak if clinically appropriate Approved by: Venkat Mtz M.D. on 11/10/2022 at 16:58
[2022-11-10] MEDS: GABAPENTIN 300 MG CAPSULE PO ×2 (18:05→21:20)
[2022-11-10 18:24] LABS: Add Manual Diff / Slide Review NO; Basophils Absolute Auto 100 /uL (0-100); Basophils Percent Auto 0.5 % (0-2); Eosinophils Absolute Auto 0 /uL (0-450); Eosinophils Percent Auto 0.3 % (2-4); Hematocrit 25.9 % (36-46); Hemoglobin 8.7 g/dL (12.0-16.0); Lymphocytes Absolute Auto 2200 /uL (1100-4500); Mean Corpuscular HGB Conc 33.7 % (30-36); Mean Corpuscular Volume 83.1 fL (80-100); Monocytes Absolute Auto 700 /uL (0-900); Monocytes Percent Auto 6.5 % (3-14); Neutrophils Absolute Auto 8100 /uL (1500-7000); Neutrophils Percent Auto 72.7 % (50-75); Platelet Count 221 X10^3/uL (150-400); Red Blood Cell Count 3.12 X10^6/uL (4.0-5.2); Red Cell Distribution Width 14.6 % (11.6-14.8); White Blood Cell Count 11.1 X10^3/uL (4.5-11.0)
[2022-11-10 18:41] LABS: Alanine Aminotransferase 414 IU/L (<35); Albumin 3.2 g/dL (3.5-5.0); Albumin Globulin Ratio 1.1 (1.0-2.8); Alkaline Phosphatase 252 U/L (38-126); Aspartate Aminotransferase 212 IU/L (14-36); BUN Creatinine Ratio 11.9 (6-22); Bilirubin Total 3.1 mg/dL (0.2-1.3); Blood Urea Nitrogen 7 mg/dL (7-17); Calcium 8.4 mg/dL (8.4-10.2); Carbon Dioxide 26 mmol/L (22-32); Chloride 101 mmol/L (98-107); Estimated Glomerular Filt Rate > 60 mL/min (>60); Glucose 147 mg/dL (70-100); HEMOLYSIS < 15 (0-50); Potassium 3.4 mmol/L (3.4-5.1); Sodium 134 mmol/L (137-145); Total Protein 6.2 g/dL (6.3-8.2)
[2022-11-10 19:00] VITALS: BP 139/99; PULSE 104; RESP 20; TEMP 36.6; O2SAT 98; O2SAT 99
[2022-11-10] MEDS: ONDANSETRON 4 MG/2 ML INJ IV (21:20)
[2022-11-11] MEDS: AMPICILLIN/SULBACTAM 3 GM 3 GM in SODIUM CHLORIDE 0.9% 100 ML IV ×3 (00:32→11:47)
[2022-11-11 02:30] VITALS: BP 136/86; PULSE 100; RESP 19; TEMP 36.6; O2SAT 98
[2022-11-11] MEDS: IBUPROFEN 400 MG TABLET 800 MG PO ×3 (04:29→15:38)
[2022-11-11] MEDS: ACETAMINOPHEN 325 MG TABLET 975 MG PO ×3 (04:29→15:37)
[2022-11-11] MEDS: OXYCODONE IR 5 MG TABLET PO (04:29)
[2022-11-11] MEDS: OXYCODONE IR 10 MG TABLET PO ×3 (06:23→15:38)
[2022-11-11] MEDS: ONDANSETRON 4 MG/2 ML INJ IV ×2 (06:23→17:25)
[2022-11-11 06:36] LABS: Alanine Aminotransferase 401 IU/L (<35); Albumin 3.2 g/dL (3.5-5.0); Albumin Globulin Ratio 1.1 (1.0-2.8); Alkaline Phosphatase 253 U/L (38-126); Aspartate Aminotransferase 199 IU/L (14-36); Bilirubin Total 2.8 mg/dL (0.2-1.3); Blood Urea Nitrogen 7 mg/dL (7-17); Calcium 8.5 mg/dL (8.4-10.2); Carbon Dioxide 28 mmol/L (22-32); Chloride 102 mmol/L (98-107); Estimated Glomerular Filt Rate > 60 mL/min (>60); Glucose 86 mg/dL (70-100); HEMOLYSIS < 15 (0-50); Potassium 3.5 mmol/L (3.4-5.1); Sodium 135 mmol/L (137-145); Total Protein 6.2 g/dL (6.3-8.2)
--- NOTE | 2022-11-11 07:11 | DI.MRI.S_ITS ---
PROCEDURE: MR ABDOMEN WO/W CON INDICATIONS: common bile duct stones TECHNIQUE: Coronal HASTE, axial 2D FLASH in- and hkg-of-ofnmu; axial breath-hold T2 FSE with fat saturation from the hepatic dome to the iliac crests. Oblique coronal thin-slice and radial thick slab HASTE through the biliary system. Dynamic axial VIBE during administration of contrast. Post-contrast coronal VIBE or 2D FLASH with fat saturation from the hepatic dome to the iliac crests. Optional diffusion weighted imaging and ADC may be performed. COMPARISON: [facility], CT, CT ABDOMEN PELVIS W CON, 11/10/2022, 16:47. FINDINGS: Pancreas and biliary system: Prior cholecystectomy. Mild extrahepatic and central intrahepatic biliary ductal dilation. Extrahepatic duct measures up to 11 mm. No definite/convincing choledocholithiasis identified. No dilation of the main pancreatic duct. Solid organs: Liver is normal in size and enhancement. Spleen is normal in size and enhancement. No adrenal nodules. Kidneys are normal in size and enhancement, without hydronephrosis. Nodes and vessels: No retroperitoneal or mesenteric adenopathy by size criteria. Aorta and inferior vena cava are normal in size. Bowel and peritoneum: Visualized large and small bowel is non-dilated. Abdominal free fluid/possible blood products and mesenteric masses suspicious for hematoma as on prior CT. Lung bases: No large pleural effusion. IMPRESSION: 1. Prior cholecystectomy. 2. Mild extrahepatic and central intrahepatic biliary ductal dilation. No definite/convincing choledocholithiasis identified. If clinical suspicion for an obstructing stone persists, endoscopic evaluation may be helpful. Dictated by: Russ Zepeda M.D. on 11/11/2022 at 11:11 Approved by: Russ Zepeda M.D. on 11/11/2022 at 11:52
[2022-11-11 07:32] VITALS: BP 182/111; PULSE 112; RESP 20; TEMP 36.3; O2SAT 98
--- NOTE | 2022-11-11 08:35 | PM.PNPO.1 ---
Subjective Subjective Date Patient Seen: 11/11/22 Time Patient Seen: 08:36 Exam Vital Signs (past 8 hours): - 11/11/22 02:30 11/11/22 07:32 11/11/22 07:32 Temperature 97.9 F 97.4 F L Pulse Rate 100 H 112 H Respiratory Rate 19 20 Blood Pressure 136/86 182/111 H Pulse Oximetry 98 98 98 Oxygen Delivery Method Room Air Oxygen Flow Rate 0 0 0 Oxygen Delivery Method Room Air Oxygen Flow Rate 0 Narrative Exam Narrative: C/o chest pain. Const General: anxious Nutritional Appearance: obese Objective Labs 11/10/22 18:18 11/11/22 05:23 Labs: Laboratory Results - last 24 hr 11/10/22 11/10/22 11/11/22 18:18 18:18 05:23 WBC 11.1 H RBC 3.12 L Hgb 8.7 L Hct 25.9 L MCV 83.1 MCH 28.0 MCHC 33.7 RDW 14.6 Plt Count 221 Neut % (Auto) 72.7 Lymph % (Auto) 20.0 L [place] % (Auto) 6.5 Eos % (Auto) 0.3 L Baso % (Auto) 0.5 Neut # (Auto) 8100 H Lymph # (Auto) 2200 [place] # (Auto) 700 Eos # (Auto) 0 Baso # (Auto) 100 Sodium 134 L 135 L Potassium 3.4 3.5 Chloride 101 102 Carbon Dioxide 26 28 BUN 7 7 Creatinine 0.59 0.54 Estimated GFR > 60 > 60 BUN/Creatinine Ratio 11.9 13.0 Glucose 147 H 86 Calcium 8.4 8.5 Total Bilirubin 3.1 H 2.8 H AST 212 H 199 H ALT 414 H 401 H Alkaline Phosphatase 252 H 253 H Total Protein 6.2 L 6.2 L Albumin 3.2 L 3.2 L Globulin 3.0 3.0 Albumin/Globulin Ratio 1.1 1.1 PFSH Medical History Anxiety Depression Elevated BP without diagnosis of hypertension Head injury Personal history of COVID-19 Recurrent dislocation of patella, right knee Surgical History Status post myringotomy with insertion of tube (10/29/04) Family History Grandmother Age: 74 Hypothyroidism Type 2 diabetes mellitus Mother Age: 45 Polycystic ovaries Obesity Hypothyroidism Grandmother Age: 72 Hypothyroidism Social History household members: significant other Smoking Status: Never smoker alcohol intake: never Assessment & Plan Post-op Postoperative Procedures: Procedures Operation Date: 11/09/22 10:45 Actual Procedure Side Surgeon p Laparoscopic Cholecystectomy Not Applicable Jessica Savage MD Postoperative status narrative: still elevated LFT's that more likely is common bile duct partial obstruction anxiety acute blood loss anemia s/p lap beto Hematoma at umbilical port site Plan: continue IV antibiotics MRCP May require ERCP Time Spent With Patient Time with patient: 15-24 minutes
[2022-11-11] MEDS: CELECOXIB 200 MG CAPSULE PO (09:24)
[2022-11-11] MEDS: GABAPENTIN 300 MG CAPSULE PO ×2 (09:24→15:37)
[2022-11-11] MEDS: PRENATAL VIT,CALC/IRON/FOLIC 1 TABLET 1 TAB PO (09:24)
[2022-11-11] MEDS: DOCUSATE 100 MG CAPSULE PO (09:24)
[2022-11-11] MEDS: ALPRAZolam 0.5 MG TABLET PO (09:24)
[2022-11-11] MEDS: buPROPion XL 150 MG TAB 300 MG PO (09:24)
--- NOTE | 2022-11-11 14:27 | P.DS_ITS ---
History of Present Illness History of Present Illness Date Patient Seen: 11/11/22 Chief complaint: intense stomach and chest pains Narrative: acute roopa with Lap Roopa 11/09/22. Post op tachycardia from bleeding associated w Lovanox. New elevated T bili and Alk Phos with persistent abd pain c/w bile leak. HIDA scan was interrupted early but concerning for leak. MRCP shows no CBD defect. Discharge Providers Provider Date of admission: 11/10/22 12:24 Discharge Date: 11/11/22 Primary care physician: CARLY Lara Consults: Armaan Walls at [facility] Discharge provider: Jessica Savage MD Summary Hospital Course Discharge Diagnosis: s/p lap roopa with possible bile leak Hospital Course: acute roopa 11/09 lap roopa Post op acute blood loss anemia with possible bile leak in fossa bed Transfering for ERCP Status at Discharge Cognitive/behavioral status at discharge: at baseline, oriented Functional status at discharge: independent ambulation Overall status at discharge: patient is not back to baseline Time Spent with Patient Time spent: Greater than 30 minutes Exam Vital Signs (past 8 hours): - 11/11/22 07:32 11/11/22 07:32 Temperature 97.4 F L Pulse Rate 112 H Respiratory Rate 20 Blood Pressure 182/111 H Pulse Oximetry 98 98 Oxygen Delivery Method Room Air Oxygen Flow Rate 0 0 Oxygen Delivery Method Room Air Oxygen Flow Rate 0 Narrative Exam Narrative: Abdomen soft with hematoma at umbilical port site, no active bleeding. Anxious. epigastric pain Const General: anxious and ill appearing Nutritional Appearance: obese Orientation: alert, awake and oriented x3 HENMT Head: normocephalic and atraumatic Ears: hearing grossly normal bilaterally Face and sinus: normal facial exam Eyes Alignment and Position: alignment normal Sclera: sclerae normal Neck Neck: trachea midline Resp Effort & Inspection: normal respiratory effort and able to speak in complete sentences Cardio Rate: tachycardic Rhythm: regular rhythm GI Inspection: abdominal wall ecchymosis Palpation: soft Skin Hair: normal Neuro General: patient alert, patient awake and patient oriented x3 Cognition: normal cognition Psych Judgment: judgment good Objective Labs 11/10/22 18:18 11/11/22 05:23 Labs: Laboratory Results - last 24 hr 11/10/22 11/10/22 11/11/22 18:18 18:18 05:23 WBC 11.1 H RBC 3.12 L Hgb 8.7 L Hct 25.9 L MCV 83.1 MCH 28.0 MCHC 33.7 RDW 14.6 Plt Count 221 Neut % (Auto) 72.7 Lymph % (Auto) 20.0 L [place] % (Auto) 6.5 Eos % (Auto) 0.3 L Baso % (Auto) 0.5 Neut # (Auto) 8100 H Lymph # (Auto) 2200 [place] # (Auto) 700 Eos # (Auto) 0 Baso # (Auto) 100 Sodium 134 L 135 L Potassium 3.4 3.5 Chloride 101 102 Carbon Dioxide 26 28 BUN 7 7 Creatinine 0.59 0.54 Estimated GFR > 60 > 60 BUN/Creatinine Ratio 11.9 13.0 Glucose 147 H 86 Calcium 8.4 8.5 Total Bilirubin 3.1 H 2.8 H AST 212 H 199 H ALT 414 H 401 H Alkaline Phosphatase 252 H 253 H Total Protein 6.2 L 6.2 L Albumin 3.2 L 3.2 L Globulin 3.0 3.0 Albumin/Globulin Ratio 1.1 1.1 PFSH Medical History Anxiety Depression Elevated BP without diagnosis of hypertension Head injury Personal history of COVID-19 Recurrent dislocation of patella, right knee Surgical History Status post myringotomy with insertion of tube (10/29/04) Family History Grandmother Age: 74 Hypothyroidism Type 2 diabetes mellitus Mother Age: 45 Polycystic ovaries Obesity Hypothyroidism Grandmother Age: 72 Hypothyroidism Social History household members: significant other Smoking Status: Never smoker alcohol intake: never Discharge Assessment & Plan Assessment and Plan Assessment: s/p lap roopa w possible bile leak obesity acute blood loss anemia anxious Plan of Treatment: transfer to [facility] for evaluation for ERCP Discharge Plan Discharge Plan Patient Disposition: [facility] Other facility: [facility] Under care of provider: Ramesh Discharge Health Status Precautions: [place] Diet/Activity/Treatments Diet: Clear Liquid Visit Report/Discharge Packet Instructions: DI for Laparoscopy, DI for Prescription Opioid Use Stand Alone Forms: Patient Portal/API, Surgery Discharge Discharge Data Primary Care Provider: Roc Guy
[2022-11-11] MEDS: lamoTRIgine 100 MG TABLET 150 MG PO (16:46)
[2022-11-11] MEDS: HYDROMORPHONE 0.5 MG INJ IV (17:25)
== END 2022-11-11 17:57 | disposition short-term general hospital (02) | DRG 418 ==
LOC: ED 21:27 → AC 21:31
PROVIDERS: Surgery; Admitting Provider Surgery; Emergency Provider Emergency Medicine; PCP Registered Nurse Diabetes Educator; Referring Provider Emergency Medicine; Visit Provider Surgery
PROC: 0FT44ZZ Resection of Gallbladder, Percutaneous Endoscopic Approach (ICD-10-PCS; CPT 47562; principal; 2022-11-09 10:45)
DX: K81.0 Acute cholecystitis (principal); D62 Acute posthemorrhagic anemia; K91.89 Other postprocedural complications and disorders of digestive system; F41.9 Anxiety disorder, unspecified; Z20.822 Contact with and (suspected) exposure to COVID-19
CPT/HCPCS: 36415; 47562; 74177; 74183; 76705; 78226; 80053; 81003; 81015; 81025; 83690; 85025; 87635; 93005; 96374; 96375; 96376; 99222; 99284; A9537; C9803; G0378; A9579; C9113; J0171; J0295; J0330; J0780; J1100; J1170; J1650; J1885; J2250; J2405; J2704; J3010

== ENCOUNTER → 2022-11-22 10:09 | Outpatient (CLI) | payer OTHER, SELFPAY ==
[2022-11-07 22:34] VITALS: BMI 39.1
[2022-11-22 11:42] LABS: Add Manual Diff / Slide Review NO; Basophils Absolute Auto 100 /uL (0-100); Basophils Percent Auto 0.8 % (0-2); Eosinophils Absolute Auto 200 /uL (0-450); Hematocrit 29.9 % (36-46); Hemoglobin 9.8 g/dL (12.0-16.0); Lymphocytes Absolute Auto 2200 /uL (1100-4500); Lymphocytes Percent Auto 21.2 % (25-40); Mean Corpuscular HGB Conc 32.9 % (30-36); Mean Corpuscular Hemoglobin 27.8 PG (26-34); Mean Corpuscular Volume 84.5 fL (80-100); Monocytes Absolute Auto 700 /uL (0-900); Neutrophils Absolute Auto 7100 /uL (1500-7000); Platelet Count 479 X10^3/uL (150-400); Red Blood Cell Count 3.54 X10^6/uL (4.0-5.2); Red Cell Distribution Width 15.4 % (11.6-14.8); White Blood Cell Count 10.3 X10^3/uL (4.5-11.0)
[2022-11-22 12:01] LABS: Alanine Aminotransferase 31 IU/L (<35); Alkaline Phosphatase 106 U/L (38-126); Aspartate Aminotransferase 22 IU/L (14-36); BUN Creatinine Ratio 16.7 (6-22); Bilirubin Total 0.9 mg/dL (0.2-1.3); Blood Urea Nitrogen 11 mg/dL (7-17); Calcium 9.3 mg/dL (8.4-10.2); Carbon Dioxide 26 mmol/L (22-32); Chloride 103 mmol/L (98-107); Estimated Glomerular Filt Rate > 60 mL/min (>60); Glucose 104 mg/dL (70-100); HEMOLYSIS < 15 (0-50); Potassium 3.9 mmol/L (3.4-5.1); Sodium 137 mmol/L (137-145)
== END ==
PROVIDERS: PCP Registered Nurse Diabetes Educator; Referring Provider Surgery; Visit Provider Surgery
DX: K81.0 Acute cholecystitis (principal)
CPT/HCPCS: 36415; 80053; 85025

== ENCOUNTER 2022-11-27 06:52 | Emergency (ER) | payer OTHER, SELFPAY ==
[2022-11-07 22:34] VITALS: BMI 39.1
[2022-11-27] VITALS (7 sets, daily range): BP systolic 123–136; BP diastolic 68–81; PULSE 77–93; RESP 20–22; TEMP 36.6; O2SAT 98–100; BMI 42.3
--- NOTE | 2022-11-27 07:15 | DI.CT.S_ITS ---
PROCEDURE: CT ABDOMEN PELVIS W CON INDICATIONS: IV contrast only/postop gallbladder and stent TECHNIQUE: After the administration of oral and IV contrast, axial sections were acquired from the lung bases to the pubic symphysis. Coronal and sagittal reformats were performed. For radiation dose reduction, the following was used: automated exposure control, adjustment of mA and/or kV according to patient size. COMPARISON: [facility], MR, MR ABDOMEN WO/W CON, 11/11/2022, 10:04. [facility], US, US ABDOMEN LIMITED, 11/27/2022, 8:05. [facility], CT, CT ABDOMEN PELVIS W CON, 11/10/2022, 16:47. FINDINGS: Image quality: Excellent. Lung bases: Unremarkable. A small hiatal hernia. Heart: No significant findings. ABDOMEN: Liver: Mildly enlarged. There is pneumobilia. A stent is seen in the distal common bile duct. Gallbladder: Surgically absent. No significant fluid collection in gallbladder fossa to suggest hematoma or abscess. Biliary ducts: Pneumobilia likely secondary to sphincterotomy. Pancreas: Unremarkable. Spleen: Unremarkable. Adrenal Glands: Unremarkable. Kidneys and Ureters: Unremarkable. Stomach and Bowel: Stomach, small bowel loops, and colon are normal in caliber. There is a large amount of stool in colon. Peritoneum: Small intraperitoneal fluid in the cul-de-sac. No free air. Ventral Wall: No hernia. There is a periumbilical fluid collection measuring 6.5 x 4.5 cm, minimally changed compared to the last exam. It is most likely a hematoma. Soft tissue stranding in the right anterior abdominal wall. Abdominal Nodes: No retroperitoneal or mesenteric adenopathy by size criteria. Vessels: Aorta and inferior vena cava are normal in size. PELVIS: Pelvic Organs: Unremarkable. Bladder: Unremarkable. Pelvic Nodes: No enlarged lymph nodes. Miscellaneous: No inguinal hernias are seen. Bones: Unremarkable. IMPRESSION: 1. Cholecystectomy. No hematoma or abscess in gallbladder fossa. 2. Periumbilical anterior abdominal wall hematoma appears minimally changed. 3. Small amount of free fluid in the cul-de-sac, minimally changed. No drainable fluid collections. Dictated by: Kajal Avina M.D. on 11/27/2022 at 8:43 Approved by: Kajal Avina M.D. on 11/27/2022 at 8:52
--- NOTE | 2022-11-27 07:19 | ED_ITS ---
HPI - Abdominal Pain General Chief Complaint: Abdominal Pain Stated Complaint: abd. pain/post op gallbladder removed Time Seen by Provider: 11/27/22 07:02 Source: patient Mode of arrival: Ambulatory History of Present Illness HPI narrative: Patient brought in by family for complaints of right upper quadrant pain that started 2 hours ago. Patient is status post laparoscopic cholecystectomy here, was transferred to [facility] for biliary leak and had stent placed. Patient has had nausea. No fever chills. Has been doing well being discharged from [facility]. She had appointment follow up with Dr. Issa Gomez and was progressing very well. Related Data Previous Rx's Medication Instructions Recorded bupropion HCl 150 mg 24 hr tablet, 300 mg PO QAM #180 tabs 04/06/22 extended release (Wellbutrin XL) norgestimate 0.25 mg-ethinyl 1 tab PO DAILY #84 tabs 10/27/22 estradiol 35 mcg tablet (Sprintec (28)) lamotrigine 100 mg tablet 150 mg PO BEDTIME #45 tabs 11/23/22 hydrocodone 5 mg-acetaminophen 325 1 tab PO Q6H PRN pain #12 tabs 12/08/22 mg tablet ondansetron 4 mg disintegrating 4 mg PO Q8H PRN nausea and 12/08/22 tablet vomiting #10 tabs Allergies Allergy/AdvReac Type Severity Reaction Status Date / Time latex Allergy Severe skin Verified 12/08/22 14:31 blisters, redness and very itchy medroxyprogesterone AdvReac Severe Severe Verified 12/08/22 14:31 [From Depo-Provera] depression & anxiety; mood swings human papillomavirus AdvReac Intermediate Swelling Verified 12/08/22 14:31 vaccine, 9-valent redness [From Gardasil 9 (PF)] and pain at injection site Review of Systems Review of Systems Narrative: GENERAL: negative chills, fatigue, malaise, fever, sweats. HEENT: negative sinus pain, ear pain, sore throat RESPIRATORY: negative dyspnea, cough CARDIOVASCULAR: negative chest pain, palpitations GASTROINTESTINAL: Positive nausea, negative vomiting, positive abdominal pain : negative dysuria, frequency, hematuria MUSCULOSKELETAL: negative muscle or bony pain SKIN: negative rash, skin lesions NEUROLOGIC: negative weakness, numbness Patient History Medical History Anxiety Depression Elevated BP without diagnosis of hypertension Head injury Personal history of COVID-19 Recurrent dislocation of patella, right knee Surgical History Status post myringotomy with insertion of tube (10/29/04) Family History Grandmother Age: 74 Hypothyroidism Type 2 diabetes mellitus Mother Age: 45 Polycystic ovaries Obesity Hypothyroidism Grandmother Age: 72 Hypothyroidism Social History household members: significant other Smoking Status: Never smoker alcohol intake: never Smoking Status: Never smoker alcohol intake frequency: 0-2 drinks per day Substance Use Type: marijuana Exam Narrative Exam Narrative: GENERAL: in no distress, not toxic not dyspneic HEAD: Normocephalic. EYES: Pupils equal round, no icterus ENT: Mucous membranes moist. NECK: Trachea midline. CARDIOVASCULAR: Regular rate and rhythm without murmurs RESPIRATORY: Clear to auscultation. Breath sounds equal bilaterally. No wheezes, rales, or rhonchi. GASTROINTESTINAL: Abdomen soft, reproducible right upper quadrant tenderness. No peritoneal signs. No pain out of proportion to exam. Bowel sounds are present. No CVA tenderness. EXTREMITIES: No gross deformities. BACK: No flank tenderness. NEURO: AOx4. SKIN: Warm and dry, no jaundice PSYCH: Not anxious, is cooperative Initial Vital Signs Initial Vital Signs: Vital Signs Temperature 98 F 11/27/22 07:12 Pulse Rate 90 11/27/22 07:12 Respiratory Rate 22 11/27/22 07:12 Blood Pressure 136/81 11/27/22 07:12 Pulse Oximetry 98 11/27/22 07:12 Oxygen Delivery Method Room Air 11/27/22 07:12 Course Orders Ordered: Discontinued Medications Hydromorphone HCl (Hydromorphone 1 Mg Inj) 1 mg IV NOW ONE Stop: 11/27/22 07:16 Last Admin: 11/27/22 07:37 Dose: 1 mg Documented By: GEOFFREY Sodium Chloride (Normal Saline 0.9%) 1,000 mls @ 1,000 mls/hr IV BOLUS ONE Stop: 11/27/22 08:14 Last Infusion: 11/27/22 09:34 Dose: 0 mls/hr Documented By: Admin: 11/27/22 07:36 Dose: 1,000 mls/hr Documented By: GEOFFREY Ondansetron HCl (Ondansetron 4 Mg/2 Ml Inj) 4 mg IV NOW ONE Stop: 11/27/22 07:16 Last Admin: 11/27/22 07:36 Dose: 4 mg Documented By: GEOFFREY Vital Signs Vital signs: Vital Signs - 8 hr 11/27/22 07:12 11/27/22 07:17 11/27/22 07:30 Temperature 98 F Pulse Rate 90 85 85 Respiratory Rate 22 Blood Pressure 136/81 Pulse Oximetry 98 100 99 Oxygen Delivery Method Room Air Room Air 11/27/22 08:02 11/27/22 08:30 Temperature Pulse Rate 77 Respiratory Rate Blood Pressure Pulse Oximetry 100 98 Oxygen Delivery Method Room Air MDM - Abdominal Pain Lab Data 11/27/22 08:25 11/27/22 08:25 Labs: Lab Results 11/27/22 11/27/22 11/27/22 Range/Units 07:25 08:25 08:25 WBC 9.5 (4.5-11.0) X10^3/uL RBC 3.48 L (4.0-5.2) X10^6/uL Hgb 9.6 L (12.0-16.0) g/dL Hct 29.0 L (36-46) % MCV 83.2 (80-100) fL MCH 27.6 (26-34) PG MCHC 33.2 (30-36) % RDW 15.5 H (11.6-14.8) % Plt Count 389 (150-400) X10^3/uL Neut % (Auto) 71.9 (50-75) % Lymph % (Auto) 19.5 L (25-40) % [place] % (Auto) 5.8 (3-14) % Eos % (Auto) 1.9 L (2-4) % Baso % (Auto) 0.9 (0-2) % Neut # (Auto) 6800 (7046-0759) /uL Lymph # (Auto) 1900 (2717-9264) /uL [place] # (Auto) 600 (0-900) /uL Eos # (Auto) 200 (0-450) /uL Baso # (Auto) 100 (0-100) /uL Sodium 135 L (137-145) mmol/L Potassium 4.7 (3.4-5.1) mmol/L Chloride 102 (98-107) mmol/L Carbon Dioxide 25 (22-32) mmol/L BUN 12 (7-17) mg/dL Creatinine 0.54 (0.52-1.04) mg/dL Estimated GFR > 60 (>60) mL/min BUN/Creatinine Ratio 22.2 H (6-22) Glucose 97 (70-100) mg/dL Calcium 8.7 (8.4-10.2) mg/dL Total Bilirubin 0.9 (0.2-1.3) mg/dL AST 35 (14-36) IU/L ALT 22 (<35) IU/L Alkaline Phosphatase 89 (38-126) U/L Total Protein 7.6 (6.3-8.2) g/dL Albumin 4.0 (3.5-5.0) g/dL Globulin 3.6 (1.7-4.1) g/dL Albumin/Globulin Ratio 1.1 (1.0-2.8) Lipase 203 (23-300) U/L Serum , Qual (Negative) SARS-CoV-2 (PCR) Negative (Negative) 11/27/22 Range/Units 08:25 WBC (4.5-11.0) X10^3/uL RBC (4.0-5.2) X10^6/uL Hgb (12.0-16.0) g/dL Hct (36-46) % MCV (80-100) fL MCH (26-34) PG MCHC (30-36) % RDW (11.6-14.8) % Plt Count (150-400) X10^3/uL Neut % (Auto) (50-75) % Lymph % (Auto) (25-40) % [place] % (Auto) (3-14) % Eos % (Auto) (2-4) % Baso % (Auto) (0-2) % Neut # (Auto) (5105-2697) /uL Lymph # (Auto) (2287-1345) /uL [place] # (Auto) (0-900) /uL Eos # (Auto) (0-450) /uL Baso # (Auto) (0-100) /uL Sodium (137-145) mmol/L Potassium (3.4-5.1) mmol/L Chloride (98-107) mmol/L Carbon Dioxide (22-32) mmol/L BUN (7-17) mg/dL Creatinine (0.52-1.04) mg/dL Estimated GFR (>60) mL/min BUN/Creatinine Ratio (6-22) Glucose (70-100) mg/dL Calcium (8.4-10.2) mg/dL Total Bilirubin (0.2-1.3) mg/dL AST (14-36) IU/L ALT (<35) IU/L Alkaline Phosphatase (38-126) U/L Total Protein (6.3-8.2) g/dL Albumin (3.5-5.0) g/dL Globulin (1.7-4.1) g/dL Albumin/Globulin Ratio (1.0-2.8) Lipase (23-300) U/L Serum , Qual Negative (Negative) SARS-CoV-2 (PCR) (Negative) Imaging Data US - abdomen: Radiologist's Impression: PROCEDURE:? US ABDOMEN LIMITED ? INDICATIONS:? RUQ PAIN 20 DAYS POST HAWK/DUCT STENT ? TECHNIQUE:? Real-time scanning was performed of the abdominal and retroperitoneal organs, with image documentation.? ? COMPARISON:? [facility], CT, CT ABDOMEN PELVIS W CON, 11/27/2022, 7:26.? [facility], US, US ABDOMEN LIMITED, 11/07/2022, 20:40. ? FINDINGS:? ? Liver:? Liver is normal in size and demonstrates increased echotexture.? Gallbladder:? Surgically absent.? Biliary ducts:? Intrahepatic bile ducts are non-dilated.? Extrahepatic bile duct caliber measures 8.1 mm.? Normal is 6-7 mm or less in diameter, or 10 mm or less post-cholecystectomy.? Pancreas:? Obscured by overlying bowel gas.? Miscellaneous:? No free abdominal fluid.? ? ? IMPRESSION:? ? 1. Cholecystectomy.? Common bile duct measures 8.1 mm.? The biliary stent per history is not visualized. 2.? Diffusely increased hepatic echotexture. This finding is most likely seconda ry to hepatic fatty infiltration although other hepatocellular disease may have a similar appearance. Recommend clinical correlation.? 3. Pancreas obscured by overlying bowel gas. ? ? Dictated by: Kajal Avina M.D. on 11/27/2022 at 8:41 ? ? Approved by: Kajal Avina M.D. on 11/27/2022 at 8:43 ? CT scan - abdomen/pelvis: Radiologist's Impression: PROCEDURE:? CT ABDOMEN PELVIS W CON ? INDICATIONS:? IV contrast only/postop gallbladder and stent ? TECHNIQUE:? After the administration of oral and IV contrast, axial sections were acquired f rom the lung bases to the pubic symphysis.? Coronal and sagittal reformats were performed.? For radiation dose reduction, the following was used:? automated exposure control, adjustment of mA and/or kV according to patient size. ? COMPARISON:? [facility], , ABDOMEN WO/W CON, 11/11/2022, 10:04.? [facility], US, US ABDOMEN LIMITED, 11/27/2022, 8:05.? [facility], CT, CT ABDOMEN PELVIS W CON, 11/10/2022, 16:47. ? FINDINGS:? Image quality:? Excellent.? ? Lung bases:? Unremarkable.? A small hiatal hernia. ? Heart:? No significant findings. ? ? ABDOMEN: Liver:? Mildly enlarged.? There is pneumobilia.? A stent is seen in the distal common bile duct.? ? Gallbladder:? Surgically absent.? No significant fluid collection in gallbladder fossa to suggest hematoma or abscess.? ? Biliary ducts:? Pneumobilia likely secondary to sphincterotomy.? ? Pancreas:? Unremarkable.? ? Spleen:? Unremarkable.? ? Adrenal Glands:? Unremarkable.? ? Kidneys and Ureters:? Unremarkable.? ? ? Stomach and Bowel:? Stomach, small bowel loops, and colon are normal in caliber.? There is a large amount of stool in colon.? Peritoneum:? Small intraperitoneal fluid in the cul-de-sac.? No free air.? ? Ventral Wall: ? No hernia.? There is a periumbilical fluid collection measuring 6.5 x 4.5 cm, minimally changed compared to the last exam.? It is most likely a hematoma.? Soft tissue stranding in the right anterior abdominal wall. Abdominal Nodes:? No retroperitoneal or mesenteric adenopathy by size criteria.? Vessels:? Aorta and inferior vena cava are normal in size.? ? PELVIS: Pelvic Organs:? Unremarkable.? ? Bladder:? Unremarkable.? ? Pelvic Nodes: No enlarged lymph nodes.? Miscellaneous: No inguinal hernias are seen. ? ? ? Bones:? Unremarkable.? IMPRESSION:? ? 1. Cholecystectomy.? No hematoma or abscess in gallbladder fossa.? 2. Periumbilical anterior abdominal wall hematoma appears minimally changed. 3. Small amount of free fluid in the cul-de-sac, minimally changed.? No drainable fluid collections.? ? ? Dictated by: Kajal Avina M.D. on 11/27/2022 at 8:43 ? ? Approved by: Kajal Avina M.D. on 11/27/2022 at 8:52 ? MDM Narrative Medical decision making narrative: After history and exam CBC CMP lipase ultrasound CT scan normal saline Dilaudid Zofran MDM CC: Right upper quadrant pain Complicating co-morbidities: Status post lap cholecystectomy and ERCP with stent Data collected from: Patient and partner Medical records reviewed: Discharge summary November 11, 2022 from general surgery services at this hospital Differential considered: Includes but not limited to cholelithiasis stent blockage seroma hematoma bowel obstruction Exam documented above, pertinent findings include: Tender right upper quadrant Lab Test results independently reviewed as above. Pertinent findings: WBC 9.5 hemoglobin at baseline 9.6 AST 35 ALT 22 alkaline phosphatase 89 total bilirubin 0.9 lipase 203, negative Imaging studies independently reviewed: Ultrasound abdomen no acute process. CT abdomen pelvis no acute process Consultations: 7:[address] Parsons, recommends ultrasound g allbladder as well as CT scan imaging, call him back with results 9:[address] Parsons results again. He states they are reassuring and patient can be discharged home and follow up with the Gastroenterology team at [facility]. Treatments: Dilaudid Zofran normal saline Re-evaluations: 9:30 a.m.. Spoke with patient and mother and father at bedside. Pain is controlled. Patient feels much better. Reviewed results of imaging and laboratory studies and my discussion with Dr. Sauceda with him. She is not scheduled appointment with [facility] Gastroenterology. She will call on Tuesday. Return precautions reviewed with her. She agrees with over the weekend short course pain medication for breakthrough pain. At this time, the stent may have caused the pain, maybe some movement or colic. But no blockage seen Discussion: Appropriate for discharge home. Pain is controlled. Laboratory studies at exam and imaging are reassuring. Not toxic. I did review with Dr. Parsons with General surgery. No signs of blockage at this time. Return preca utions reviewed with patient and family. They desire discharge home. Diagnosis: postop pain Discharge Plan Departure Patient Disposition: Home Clinical Impression: Abdominal pain Instructions: DI for Abdominal Pain-Adult Activity Restrictions/Additional Instructions: No driving or operating machinery today or when taking prescribed pain medication. Today's laboratory studies and imaging studies are reassuring. We have reviewed this with her general surgery team as well. Please do call the Gastroenterology team at [facility] on Tuesday to schedule your follow up appointment to remove your stent. Return if worse or for any questions or concerns Prescriptions: No Action bupropion HCl [Wellbutrin XL] 150 mg tablet extended release 24 hr 300 mg PO QAM Qty: 180 3RF lamotrigine 100 mg tablet 150 mg PO BEDTIME Qty: 45 0RF norgestimate-ethinyl estradiol [Sprintec (28)] 0.25-35 mg-mcg tablet 1 tab PO DAILY Qty: 84 3RF hydrocodone-acetaminophen 5-325 mg tablet 1 tab PO Q6H PRN (Reason: pain) Qty: 12 0RF ondansetron 4 mg tablet,disintegrating 4 mg PO Q8H PRN (Reason: nausea and vomiting) Qty: 10 0RF Referrals: Roc Guy ARNP [Primary Care Provider] - Stand Alone Forms: Patient Portal/API
--- NOTE | 2022-11-27 07:26 | DI.US.S_ITS ---
PROCEDURE: US ABDOMEN LIMITED INDICATIONS: RUQ PAIN 20 DAYS POST HAWK/DUCT STENT TECHNIQUE: Real-time scanning was performed of the abdominal and retroperitoneal organs, with image documentation. COMPARISON: [facility], CT, CT ABDOMEN PELVIS W CON, 11/27/2022, 7:26. [facility], US, US ABDOMEN LIMITED, 11/07/2022, 20:40. FINDINGS: Liver: Liver is normal in size and demonstrates increased echotexture. Gallbladder: Surgically absent. Biliary ducts: Intrahepatic bile ducts are non-dilated. Extrahepatic bile duct caliber measures 8.1 mm. Normal is 6-7 mm or less in diameter, or 10 mm or less post-cholecystectomy. Pancreas: Obscured by overlying bowel gas. Miscellaneous: No free abdominal fluid. IMPRESSION: 1. Cholecystectomy. Common bile duct measures 8.1 mm. The biliary stent per history is not visualized. 2. Diffusely increased hepatic echotexture. This finding is most likely secondary to hepatic fatty infiltration although other hepatocellular disease may have a similar appearance. Recommend clinical correlation. 3. Pancreas obscured by overlying bowel gas. Dictated by: Kajal Avina M.D. on 11/27/2022 at 8:41 Approved by: Kajal Avina M.D. on 11/27/2022 at 8:43
[2022-11-27] MEDS: ONDANSETRON 4 MG/2 ML INJ IV (07:36)
[2022-11-27] MEDS: SODIUM CHLORIDE 0.9% 1,000 ML 1000 ML IV (07:36)
[2022-11-27] MEDS: HYDROMORPHONE 1 MG INJ IV (07:37)
[2022-11-27 08:18] LABS: COVID19 -Nasal RAPID Negative (Negative)
[2022-11-27 08:34] LABS: Add Manual Diff / Slide Review NO; Basophils Absolute Auto 100 /uL (0-100); Basophils Percent Auto 0.9 % (0-2); Eosinophils Absolute Auto 200 /uL (0-450); Eosinophils Percent Auto 1.9 % (2-4); Hemoglobin 9.6 g/dL (12.0-16.0); Lymphocytes Absolute Auto 1900 /uL (1100-4500); Lymphocytes Percent Auto 19.5 % (25-40); Mean Corpuscular HGB Conc 33.2 % (30-36); Mean Corpuscular Hemoglobin 27.6 PG (26-34); Mean Corpuscular Volume 83.2 fL (80-100); Monocytes Absolute Auto 600 /uL (0-900); Monocytes Percent Auto 5.8 % (3-14); Neutrophils Absolute Auto 6800 /uL (1500-7000); Neutrophils Percent Auto 71.9 % (50-75); Platelet Count 389 X10^3/uL (150-400); Red Blood Cell Count 3.48 X10^6/uL (4.0-5.2); Red Cell Distribution Width 15.5 % (11.6-14.8); White Blood Cell Count 9.5 X10^3/uL (4.5-11.0)
[2022-11-27 08:44] LABS: Alanine Aminotransferase 22 IU/L (<35); Albumin Globulin Ratio 1.1 (1.0-2.8); Alkaline Phosphatase 89 U/L (38-126); Aspartate Aminotransferase 35 IU/L (14-36); BUN Creatinine Ratio 22.2 (6-22); Bilirubin Total 0.9 mg/dL (0.2-1.3); Blood Urea Nitrogen 12 mg/dL (7-17); Calcium 8.7 mg/dL (8.4-10.2); Carbon Dioxide 25 mmol/L (22-32); Chloride 102 mmol/L (98-107); Estimated Glomerular Filt Rate > 60 mL/min (>60); Globulin 3.6 g/dL (1.7-4.1); Glucose 97 mg/dL (70-100); Lipase 203 U/L (23-300); Potassium 4.7 mmol/L (3.4-5.1); Sodium 135 mmol/L (137-145); Total Protein 7.6 g/dL (6.3-8.2)
[2022-11-27 08:56] LABS: Pregnancy Test Serum,Qual Negative (Negative)
[2022-11-27 08:57] LABS: HEMOLYSIS 90 (0-50)
== END 2022-11-27 09:49 | disposition home or self-care (01) ==
PROVIDERS: Emergency Provider Emergency Medicine; PCP Registered Nurse Diabetes Educator
DX: R10.11 Right upper quadrant pain (principal); Z20.822 Contact with and (suspected) exposure to COVID-19
CPT/HCPCS: 74177; 76705; 80053; 83690; 84703; 85025; 87635; 96361; 96374; 96375; 99284; C9803; J1170; J2405; Q9967

== ENCOUNTER → 2022-12-16 09:08 | Outpatient (CLI) | payer OTHER, SELFPAY ==
[2022-11-07 22:34] VITALS: BMI 39.1
[2022-12-16 09:58] LABS: Hematocrit 33.8 % (36-46); Mean Corpuscular HGB Conc 32.6 % (30-36); Mean Corpuscular Hemoglobin 26.7 PG (26-34); Mean Corpuscular Volume 81.9 fL (80-100); Platelet Count 231 X10^3/uL (150-400); Red Blood Cell Count 4.12 X10^6/uL (4.0-5.2); Red Cell Distribution Width 15.7 % (11.6-14.8); White Blood Cell Count 9.4 X10^3/uL (4.5-11.0)
== END ==
PROVIDERS: PCP Registered Nurse Diabetes Educator; Referring Provider Nurse Practitioner Family; Visit Provider Nurse Practitioner Family
DX: D64.9 Anemia, unspecified (principal); Z90.49 Acquired absence of other specified parts of digestive tract
CPT/HCPCS: 36415; 85027

== ENCOUNTER → 2023-01-27 09:21 | Outpatient (CLI) | payer OTHER, SELFPAY ==
[2022-11-07 22:34] VITALS: BMI 39.1
[2023-01-27 10:18] LABS: Add Manual Diff / Slide Review NO; Basophils Absolute Auto 0 /uL (0-100); Basophils Percent Auto 0.3 % (0-2); Eosinophils Absolute Auto 0 /uL (0-450); Eosinophils Percent Auto 0.2 % (2-4); Hematocrit 37.9 % (36-46); Hemoglobin 12.5 g/dL (12.0-16.0); Lymphocytes Absolute Auto 1200 /uL (1100-4500); Lymphocytes Percent Auto 14.2 % (25-40); Mean Corpuscular Hemoglobin 26.4 PG (26-34); Mean Corpuscular Volume 80.1 fL (80-100); Monocytes Absolute Auto 400 /uL (0-900); Monocytes Percent Auto 4.9 % (3-14); Neutrophils Absolute Auto 7000 /uL (1500-7000); Neutrophils Percent Auto 80.4 % (50-75); Platelet Count 238 X10^3/uL (150-400); Red Blood Cell Count 4.73 X10^6/uL (4.0-5.2); White Blood Cell Count 8.7 X10^3/uL (4.5-11.0)
[2023-01-27 10:48] LABS: Alanine Aminotransferase 53 IU/L (<35); Albumin 4.9 g/dL (3.5-5.0); Albumin Globulin Ratio 1.4 (1.0-2.8); Alkaline Phosphatase 94 U/L (38-126); Aspartate Aminotransferase 24 IU/L (14-36); BUN Creatinine Ratio 9.7 (6-22); Bilirubin Total 0.6 mg/dL (0.2-1.3); Blood Urea Nitrogen 6 mg/dL (7-17); Calcium 9.7 mg/dL (8.4-10.2); Carbon Dioxide 24 mmol/L (22-32); Chloride 102 mmol/L (98-107); Estimated Glomerular Filt Rate > 60 mL/min (>60); Globulin 3.5 g/dL (1.7-4.1); Glucose 122 mg/dL (70-100); HEMOLYSIS < 15 (0-50); Potassium 4.2 mmol/L (3.4-5.1); Sodium 139 mmol/L (137-145); Total Protein 8.4 g/dL (6.3-8.2)
[2023-01-27 13:33] LABS: Appearance Urine UA SL CLOUDY; Bilirubin Urine UA 1+ (NEGATIVE); Color Urine UA YELLOW; Glucose Urine UA NEGATIVE (Negative); Ketones Urine UA 2+ (NEGATIVE); Leukocyte Esterase Urine UA NEGATIVE (NEGATIVE); Nitrite Urine UA NEGATIVE (Negative); Occult Blood Urine UA NEGATIVE (Negative); Protein Urine UA 1+ (Negative)
[2023-01-27 13:36] LABS: Pregnancy Test Urine Negative (Negative)
[2023-01-27 13:42] LABS: RBC Urine 0-1/HPF (0-5/HPF)
[2023-01-27 13:43] LABS: Bacteria Urine Moderate (10-30); Culture Indicated Urine Cult Not Indicated; Squamous Epithelial Cell Urine 1-5 /HPF (0-5/HPF); WBC Urine 0-1/HPF (0-5/HPF)
[2023-01-27 16:44] LABS: Ictotest Urine Negative (Negative)
== END ==
PROVIDERS: PCP Registered Nurse Diabetes Educator; Referring Provider Nurse Practitioner Family; Visit Provider Nurse Practitioner Family
DX: R11.10 Vomiting, unspecified (principal)
CPT/HCPCS: 36415; 80053; 81001; 81025; 85025

== ENCOUNTER 2023-01-27 17:34 | Emergency (ER) | payer OTHER, SELFPAY ==
[2022-11-07 22:34] VITALS: BMI 39.1
[2023-01-27] VITALS (10 sets, daily range): BP systolic 130–149; BP diastolic 73–94; PULSE 83–117; RESP 14–23; TEMP 37.1; O2SAT 98–100; BMI 48.5
--- NOTE | 2023-01-27 18:11 | ED_ITS ---
HPI - Nausea/Vomiting/Diarrhea General Chief complaint: Nausea/Vomiting/Diarrhea Stated complaint: Fever, Not eating/drinking Time Seen by Provider: 01/27/23 17:43 Source: patient Mode of arrival: Ambulatory History of Present Illness HPI Narrative: Patient is a 22-year-old female history of cholecystectomy in November with complication of biliary leak with stent and then a stent migrated she now has had both stents removed as January 14. She presents today with nausea vomiting diarrhea ongoing for the last 3 days. She is unable to keep anything down. She reports 2 episodes of diarrhea daily but liquid. She has Zofran at home she rep orts that it is no longer working. She has some body aches. She has upper epigastric pain. No one else is sick at home. She says that she feels dizzy and lightheaded whenever she gets up. She has not passed out. She has had significant decrease in urine output. Related Data Previous Rx's Medication Instructions Recorded bupropion HCl 150 mg 24 hr tablet, 300 mg PO QAM #180 tabs 04/06/22 extended release (Wellbutrin XL) norgestimate 0.25 mg-ethinyl 1 tab PO DAILY #84 tabs 10/27/22 estradiol 35 mcg tablet (Sprintec (28)) ondansetron 4 mg disintegrating 4 mg PO Q8H PRN nausea and 12/08/22 tablet vomiting #10 tabs lamotrigine 100 mg tablet 150 mg PO BEDTIME #45 tabs 01/10/23 metoclopramide HCl 10 mg tablet 10 mg PO Q6H PRN nausea and 01/27/23 (Reglan) vomiting #20 tabs promethazine 25 mg [address] Q4-6H PRN nausea and 01/27/23 suppository vomiting #12 ea cephalexin 500 mg capsule 500 mg PO BID 5 days #10 caps 01/28/23 Allergies Allergy/AdvReac Type Severity Reaction Status Date / Time latex Allergy Severe skin Verified 01/27/23 17:50 blisters, redness and very itchy medroxyprogesterone AdvReac Severe Severe Verified 01/27/23 17:50 [From Depo-Provera] depression & anxiety; mood swings human papillomavirus AdvReac Intermediate Swelling Verified 01/27/23 17:50 vaccine, 9-valent redness [From Gardasil 9 (PF)] and pain at injection site Review of Systems Review of Systems ROS Unobtainable: All systems reviewed & are unremarkable except as noted in HPI and below Patient History Medical History Anxiety Depression Elevated BP without diagnosis of hypertension Head injury Personal history of COVID-19 Recurrent dislocation of patella, right knee Surgical History Status post myringotomy with insertion of tube (10/29/04) Family History Grandmother Age: 74 Hypothyroidism Type 2 diabetes mellitus Mother Age: 45 Polycystic ovaries Obesity Hypothyroidism Grandmother Age: 72 Hypothyroidism Social History household members: significant other Smoking Status: Never smoker alcohol intake: never Smoking Status: Never smoker alcohol intake frequency: 0-2 drinks per day Substance Use Type: marijuana Exam Initial Vital Signs Initial Vital Signs: Vital Signs Temperature 98.8 F 01/27/23 17:44 Pulse Rate 116 H 01/27/23 17:44 Respiratory Rate 18 01/27/23 17:44 Blood Pressure 143/94 H 01/27/23 17:44 Pulse Oximetry 99 01/27/23 17:44 Oxygen Delivery Method Room Air 01/27/23 17:44 GENERAL: Alert 22-year-old female HEENT: Head atraumatic,EOMI, pupils reactive, face symmetric, dry mucous membranes CARDIOVASCULAR: Tachycardic regular no murmur RESPIRATORY: Breath sounds equal bilaterally, no wheezes rales or rhonchi. ABDOMEN: Soft, epigastric tenderness mild right upper quadrant pain no guarding no rebound no significant lower abdominal pain EXTREMITIES: Normal range of motion, no clubbing or edema. Neurovascularly intact NEUROLOGICAL: Alert and oriented x4. SKIN: Warm, dry, no laceration, no petechiae, no rashes or lesions. Course Orders Ordered: Discontinued Medications Sodium Chloride (Normal Saline 0.9%) 1,000 mls @ 1,000 mls/hr IV BOLUS ONE Stop: 01/27/23 19:06 Last Infusion: 01/27/23 20:24 Dose: 0 mls/hr Documented By: Admin: 01/27/23 18:54 Dose: 1,000 mls/hr Documented By: AT Sodium Chloride (Normal Saline 0.9%) 1,000 mls @ 1,000 mls/hr IV BOLUS ONE Stop: 01/27/23 19:17 Last Infusion: 01/27/23 21:15 Dose: 0 mls/hr Documented By: Admin: 01/27/23 20:25 Dose: 1,000 mls/hr Documented By: JOSSELINE Ketorolac Tromethamine (Ketorolac 30 Mg/Ml Vial) 30 mg IV NOW ONE Stop: 01/27/23 18:19 Last Admin: 01/27/23 18:53 Dose: 30 mg Documented By: AT Ondansetron HCl (Ondansetron 4 Mg/2 Ml Inj) 4 mg IV NOW PRN PRN Reason: Nausea And Vomiting Last Admin: 01/27/23 18:53 Dose: 4 mg Documented By: AT Ondansetron HCl (Ondansetron 4 Mg Odt Prepack) 1 bottle MISC SEEINSTR ONE Stop: 01/27/23 21:39 Last Admin: 01/27/23 21:51 Dose: 1 bottle Documented By: JOSSELINE Pantoprazole Sodium (Pantoprazole 40 Mg Vial) 40 mg IV NOW ONE Stop: 01/27/23 18:22 Last Admin: 01/27/23 18:53 Dose: 40 mg Documented By: AT Vital Signs Vital signs: Vital Signs - 8 hr 01/27/23 19:00 01/27/23 19:00 01/27/23 19:30 Pulse Rate 95 H Respiratory Rate 23 Blood Pressure 142/82 H 138/85 Pulse Oximetry 100 Oxygen Delivery Method Room Air 01/27/23 19:30 01/27/23 20:00 01/27/23 20:00 Pulse Rate 106 H 84 Respiratory Rate 18 21 Blood Pressure 146/83 H Pulse Oximetry 98 100 Oxygen Delivery Method Room Air Room Air 01/27/23 20:30 01/27/23 20:30 01/27/23 21:00 Pulse Rate 83 Respiratory Rate 18 Blood Pressure 149/77 H 136/73 Pulse Oximetry 99 Oxygen Delivery Method Room Air 01/27/23 21:00 01/27/23 21:30 01/27/23 21:30 Pulse Rate 87 83 Respiratory Rate 14 22 Blood Pressure 130/87 Pulse Oximetry 99 98 Oxygen Delivery Method Room Air Room Air MDM - Nausea/Vomiting/Diarrhea Lab Data 01/27/23 18:15 01/27/23 18:15 Labs: Lab Results 01/27/23 01/27/23 01/27/23 Range/Units 17:51 18:15 18:15 WBC 10.7 (4.5-11.0) X10^3/uL RBC 4.77 (4.0-5.2) X10^6/uL Hgb 12.6 (12.0-16.0) g/dL Hct 38.0 (36-46) % MCV 79.7 L (80-100) fL MCH 26.3 (26-34) PG MCHC 33.1 (30-36) % RDW 15.9 H (11.6-14.8) % Plt Count 235 (150-400) X10^3/uL Neut % (Auto) 71.1 (50-75) % Lymph % (Auto) 20.5 L (25-40) % [place] % (Auto) 7.4 (3-14) % Eos % (Auto) 0.3 L (2-4) % Baso % (Auto) 0.7 (0-2) % Neut # (Auto) 7600 H (4448-8370) /uL Lymph # (Auto) 2200 (3399-6181) /uL [place] # (Auto) 800 (0-900) /uL Eos # (Auto) 0 (0-450) /uL Baso # (Auto) 100 (0-100) /uL Sodium 139 (137-145) mmol/L Potassium 3.5 (3.4-5.1) mmol/L Chloride 103 (98-107) mmol/L Carbon Dioxide 22 (22-32) mmol/L BUN 7 (7-17) mg/dL Creatinine 0.74 (0.52-1.04) mg/dL Estimated GFR > 60 (>60) mL/min BUN/Creatinine Ratio 9.5 (6-22) Glucose 100 (70-100) mg/dL Lactate (0.7-2.1) mmol/L Calcium 9.6 (8.4-10.2) mg/dL Total Bilirubin 0.7 (0.2-1.3) mg/dL AST 23 (14-36) IU/L ALT 51 H (<35) IU/L Alkaline Phosphatase 94 (38-126) U/L Total Protein 8.9 H (6.3-8.2) g/dL Albumin 4.9 (3.5-5.0) g/dL Globulin 4.0 (1.7-4.1) g/dL Albumin/Globulin Ratio 1.2 (1.0-2.8) Lipase 53 (23-300) U/L Ur Bilirubin Confirm (Negative) Urine RBC (0-5/HPF) Urine WBC (0-5/HPF) Ur Squamous Epith Cells (0-5/HPF) Urine Bacteria (None) Ur Culture Indicated? Chlamy pneumoniae PCR Not detected (Not Detect) Adenovirus (PCR) Not detected (Not Detect) B. pertussis DNA (PCR) Not detected (Not Detecte) B.parapertussis DNA PCR Not detected (Not Detecte) Coronavirus OC43 (PCR) Not detected (Not Detect) Coronavirus HKU1 (PCR) Not detected (Not Detect) Coronavirus 229E (PCR) Not detected (Not Detect) SARS-CoV-2 (PCR) Not detected (Not Detecte) Coronavirus NL63 (PCR) Not detected (Not Detect) Human Metapneumovir PCR Not detected (Not Detect) Influenza Type A (PCR) Not detected (Not Detect) Influenza Type B (PCR) Not detected (Not Detect) M. pneumoniae (PCR) Not detected (Not Detect) Parainfluenza 1 (PCR) Not detected (Not Detect) Parainfluenza 2 (PCR) Not detected (Not Detect) Parainfluenza 3 (PCR) Not detected (Not Detect) Parainfluenza 4 (PCR) Not detected (Not Detect) RSV (PCR) Not detected (Not Detect) Entero/Rhino (PCR) Detected H (Not Detect) 01/27/23 01/27/23 01/27/23 Range/Units 18:15 18:15 18:45 WBC (4.5-11.0) X10^3/uL RBC (4.0-5.2) X10^6/uL Hgb (12.0-16.0) g/dL Hct (36-46) % MCV (80-100) fL MCH (26-34) PG MCHC (30-36) % RDW (11.6-14.8) % Plt Count (150-400) X10^3/uL Neut % (Auto) (50-75) % Lymph % (Auto) (25-40) % [place] % (Auto) (3-14) % Eos % (Auto) (2-4) % Baso % (Auto) (0-2) % Neut # (Auto) (5395-9776) /uL Lymph # (Auto) (2340-8758) /uL [place] # (Auto) (0-900) /uL Eos # (Auto) (0-450) /uL Baso # (Auto) (0-100) /uL Sodium (137-145) mmol/L Potassium (3.4-5.1) mmol/L Chloride (98-107) mmol/L Carbon Dioxide (22-32) mmol/L BUN (7-17) mg/dL Creatinine (0.52-1.04) mg/dL Estimated GFR (>60) mL/min BUN/Creatinine Ratio (6-22) Glucose (70-100) mg/dL Lactate 1.0 (0.7-2.1) mmol/L Calcium (8.4-10.2) mg/dL Total Bilirubin (0.2-1.3) mg/dL AST (14-36) IU/L ALT (<35) IU/L Alkaline Phosphatase (38-126) U/L Total Protein (6.3-8.2) g/dL Albumin (3.5-5.0) g/dL Globulin (1.7-4.1) g/dL Albumin/Globulin Ratio (1.0-2.8) Lipase (23-300) U/L Ur Bilirubin Confirm Negative (Negative) Urine RBC 1-5/hpf (0-5/HPF) Urine WBC 1-5/hpf (0-5/HPF) Ur Squamous Epith Cells 5-10 /hpf H (0-5/HPF) Urine Bacteria Many (>30) H (None) Ur Culture Indicated? Cult not indicated Chlamy pneumoniae PCR (Not Detect) Adenovirus (PCR) (Not Detect) B. pertussis DNA (PCR) (Not Detecte) B.parapertussis DNA PCR (Not Detecte) Coronavirus OC43 (PCR) (Not Detect) Coronavirus HKU1 (PCR) (Not Detect) Coronavirus 229E (PCR) (Not Detect) SARS-CoV-2 (PCR) (Not Detecte) Coronavirus NL63 (PCR) (Not Detect) Human Metapneumovir PCR (Not Detect) Influenza Type A (PCR) (Not Detect) Influenza Type B (PCR) (Not Detect) M. pneumoniae (PCR) (Not Detect) Parainfluenza 1 (PCR) (Not Detect) Parainfluenza 2 (PCR) (Not Detect) Parainfluenza 3 (PCR) (Not Detect) Parainfluenza 4 (PCR) (Not Detect) RSV (PCR) (Not Detect) Entero/Rhino (PCR) (Not Detect) Point of Care Testing Test Results Negative Urine Dip Bedside Urine Glucose Negative Bedside Urine Bilirubin + 1 Bedside Urine Ketone +++ 80 Urine Specific [place] 1.025 Bedside Urine Occult Blood ++ Bedside Urine pH 6.0 Bedside Urine Protein ++ 100 Bedside Urine Urobilinogen +/- 1mg Bedside Urine Nitrite + Positive Bedside Urine Leukocytes - Negative Esterase Imaging Data US - abdomen: Radiologist's Impression: PROCEDURE: US ABDOMEN LIMITED ? INDICATIONS:? RUQ PAIN ? TECHNIQUE:? Real-time focused scanning was performed of the abdomen, with image documentation.? ? COMPARISON:? [facility], CT, CT ABDOMEN PELVIS WITH CONTRAST, 01/25/2023, 10:40.? [facility], US, US ABDOMEN LIMITED, 11/27/2022, 8:05. ? FINDINGS:? ? The liver demonstrates increased no focal mass lesions.? There is increased parenchymal echogenicity compatible with fatty infiltration. ? The gallbladder is surgically absent. ? No definite intrahepatic biliary ductal dilatation.? There is dilatation of the common bile duct which measures up to 1.4 cm. ? Visualized pancreas appears unremarkable sonographically. ? ? IMPRESSION:? ? 1. Increased biliary ductal dilatation.? Further evaluation may be obtained with MRCP if indicated. ? ? Dictated by: Jim Rea M.D. on 01/27/2023 at 21:14 ? ? [facility] Narrative Medical decision making narrative: Patient 22-year-old female presenting today with nausea vomiting diarrhea ongoing for 3 days. Recent cholecystectomy with a couple postop complications with stent and migrating stent and biliary leak. Tender epigastric and right upper quadrant pain. No significant leukocytosis. She is found to have normal bilirubin stable LFTs. She was seen by her primary care this morning blood work is similar. She was also seen evaluated at [facility] ED on 01/25/2023. Today she was given nausea medication promethazine rectally and p.o. he reports that that was not working. Blood work does not show any evidence of significant dehydration or hypokalemia. Urine is positive for nitrates call at [facility]. Discharge Plan Departure Patient Disposition: Home Clinical Impression: Acute viral syndrome, UTI (urinary tract infection) Instructions: DI for Viral Syndrome Activity Restrictions/Additional Instructions: *You have been diagnosed with viral syndrome *What to do: You were diagnosed with a respiratory virus this can cause nausea vomiting diarrhea. Increase fluids as tolerated. Recommend Gatorade or Gatorade like product. *Continue to take medications as directed Reglan 10 mg every 6 hours if needed for nausea or vomiting--> Sent to [facility] *Follow up with your primary care provider in 2-3 days or call [phone] *Return to ER if you should have persistent vomiting, not tolerating fluids or any new, worsening or concerning symptoms Prescriptions: New metoclopramide HCl [Reglan] 10 mg tablet 10 mg PO Q6H PRN (Reason: nausea and vomiting) Qty: 20 0RF cephalexin 500 mg capsule 500 mg PO BID 5 Days Qty: 10 0RF No Action bupropion HCl [Wellbutrin XL] 150 mg tablet extended release 24 hr 300 mg PO QAM Qty: 180 3RF lamotrigine 100 mg tablet 150 mg PO BEDTIME Qty: 45 0RF norgestimate-ethinyl estradiol [Sprintec (28)] 0.25-35 mg-mcg tablet 1 tab PO DAILY Qty: 84 3RF ondansetron 4 mg tablet,disintegrating 4 mg PO Q8H PRN (Reason: nausea and vomiting) Qty: 10 0RF promethazine 25 mg suppository [address] Q4-6H PRN (Reason: nausea and vomiting) Qty: 12 0RF Rx Instructions: may make drowsy do not drive disregard Rx for prochlorperazine Referrals: Roc Guy ARNP [Primary Care Provider] - Stand Alone Forms: Patient Portal/API
[2023-01-27 18:27] LABS: Add Manual Diff / Slide Review NO; Basophils Absolute Auto 100 /uL (0-100); Basophils Percent Auto 0.7 % (0-2); Eosinophils Absolute Auto 0 /uL (0-450); Eosinophils Percent Auto 0.3 % (2-4); Hemoglobin 12.6 g/dL (12.0-16.0); Lymphocytes Absolute Auto 2200 /uL (1100-4500); Lymphocytes Percent Auto 20.5 % (25-40); Mean Corpuscular HGB Conc 33.1 % (30-36); Mean Corpuscular Hemoglobin 26.3 PG (26-34); Mean Corpuscular Volume 79.7 fL (80-100); Monocytes Absolute Auto 800 /uL (0-900); Monocytes Percent Auto 7.4 % (3-14); Neutrophils Absolute Auto 7600 /uL (1500-7000); Neutrophils Percent Auto 71.1 % (50-75); Platelet Count 235 X10^3/uL (150-400); Red Blood Cell Count 4.77 X10^6/uL (4.0-5.2); Red Cell Distribution Width 15.9 % (11.6-14.8); White Blood Cell Count 10.7 X10^3/uL (4.5-11.0)
[2023-01-27 18:39] LABS: Ictotest Urine Negative (Negative)
[2023-01-27 18:42] LABS: Alanine Aminotransferase 51 IU/L (<35); Albumin 4.9 g/dL (3.5-5.0); Albumin Globulin Ratio 1.2 (1.0-2.8); Alkaline Phosphatase 94 U/L (38-126); Aspartate Aminotransferase 23 IU/L (14-36); BUN Creatinine Ratio 9.5 (6-22); Bilirubin Total 0.7 mg/dL (0.2-1.3); Blood Urea Nitrogen 7 mg/dL (7-17); Calcium 9.6 mg/dL (8.4-10.2); Carbon Dioxide 22 mmol/L (22-32); Chloride 103 mmol/L (98-107); Estimated Glomerular Filt Rate > 60 mL/min (>60); Glucose 100 mg/dL (70-100); HEMOLYSIS < 15 (0-50); Lipase 53 U/L (23-300); Potassium 3.5 mmol/L (3.4-5.1); Sodium 139 mmol/L (137-145); Total Protein 8.9 g/dL (6.3-8.2)
[2023-01-27] MEDS: PANTOPRAZOLE 40 MG VIAL IV (18:53)
[2023-01-27] MEDS: KETOROLAC 30 MG/ML VIAL IV (18:53)
[2023-01-27] MEDS: ONDANSETRON 4 MG/2 ML INJ IV (18:53)
[2023-01-27] MEDS: SODIUM CHLORIDE 0.9% 1,000 ML 1000 ML IV ×2 (18:54→20:25)
[2023-01-27 19:08] LABS: Adenovirus Not Detected (Not Detect); B. parapertussis Not Detected (Not Detecte); Bordetella pertussis Not Detected (Not Detecte); Chlamydophila pneumoniae Not Detected (Not Detect); Coronavirus 229E Not Detected (Not Detect); Coronavirus HKU1 Not Detected (Not Detect); Coronavirus NL 63 Not Detected (Not Detect); Coronavirus OC43 Not Detected (Not Detect); Human Metapneumovirus Not Detected (Not Detect); Human Rhinovirus/Enterovirus Detected (Not Detect); Influenza A Not Detected (Not Detect); Influenza B Not Detected (Not Detect); Mycoplasma pneumoniae Not Detected (Not Detect); Parainfluenza Virus 1 Not Detected (Not Detect); Parainfluenza Virus 2 Not Detected (Not Detect); Parainfluenza Virus 3 Not Detected (Not Detect); Parainfluenza Virus 4 Not Detected (Not Detect); Respiratory Syncytial Virus Not Detected (Not Detect); SARS- CoV-2 Not Detected (Not Detecte)
[2023-01-27 19:22] LABS: Bacteria Urine Many (>30); Culture Indicated Urine Cult Not Indicated; RBC Urine 1-5/HPF (0-5/HPF); Squamous Epithelial Cell Urine 5-10 /HPF (0-5/HPF); WBC Urine 1-5/HPF (0-5/HPF)
--- NOTE | 2023-01-27 20:21 | DI.US.S_ITS ---
PROCEDURE: US ABDOMEN LIMITED INDICATIONS: RUQ PAIN TECHNIQUE: Real-time focused scanning was performed of the abdomen, with image documentation. COMPARISON: [facility], CT, CT ABDOMEN PELVIS WITH CONTRAST, 01/25/2023, 10:40. [facility], US, US ABDOMEN LIMITED, 11/27/2022, 8:05. FINDINGS: The liver demonstrates increased no focal mass lesions. There is increased parenchymal echogenicity compatible with fatty infiltration. The gallbladder is surgically absent. No definite intrahepatic biliary ductal dilatation. There is dilatation of the common bile duct which measures up to 1.4 cm. Visualized pancreas appears unremarkable sonographically. IMPRESSION: 1. Increased biliary ductal dilatation. Further evaluation may be obtained with MRCP if indicated. Dictated by: Jim Rea M.D. on 01/27/2023 at 21:14 Approved by: Jim Rea M.D. on 01/27/2023 at 21:19
--- NOTE | 2023-01-27 20:57 | PC.NURSE ---
PO challenge began at 20:25. 200ml ice chips provided to patient.
--- NOTE | 2023-01-27 21:12 | PC.NURSE ---
Patient did not tolerate ice chips, reports it came back up. No bile this time, but the water came back up. This nurse notes 50ml clear emesis in emesis bag
[2023-01-27] MEDS: ONDANSETRON 4 MG ODT PREPACK 1 BOTTLE MISC (21:51)
== END 2023-01-27 22:00 | disposition home or self-care (01) ==
PROVIDERS: Emergency Medicine; Emergency Provider Emergency Medicine; PCP Registered Nurse Diabetes Educator
DX: N39.0 Urinary tract infection, site not specified (principal); B34.9 Viral infection, unspecified; R19.7 Diarrhea, unspecified; R10.13 Epigastric pain; R10.11 Right upper quadrant pain; Z20.822 Contact with and (suspected) exposure to COVID-19; R11.10 Vomiting, unspecified
CPT/HCPCS: 36415; 76705; 80053; 81001; 81003; 81015; 81025; 83605; 83690; 85025; 87077; 87086; 87186; 87633; 99284; C9113; J1885; J2405

== ENCOUNTER → 2023-08-10 15:11 | Outpatient (CLI) | payer OTHER, SELFPAY ==
[2022-11-07 22:34] VITALS: BMI 39.1
[2023-08-10 16:32] LABS: Add Manual Diff / Slide Review NO; Basophils Absolute Auto 0 /uL (0-100); Basophils Percent Auto 0.5 % (0-2); Eosinophils Absolute Auto 0 /uL (0-450); Eosinophils Percent Auto 0.3 % (2-4); Hematocrit 40.9 % (36-46); Hemoglobin 13.6 g/dL (12.0-16.0); Lymphocytes Absolute Auto 2500 /uL (1100-4500); Lymphocytes Percent Auto 25.2 % (25-40); Mean Corpuscular HGB Conc 33.2 % (30-36); Mean Corpuscular Hemoglobin 28.4 PG (26-34); Mean Corpuscular Volume 85.7 fL (80-100); Monocytes Absolute Auto 400 /uL (0-900); Monocytes Percent Auto 4.5 % (3-14); Neutrophils Absolute Auto 6800 /uL (1500-7000); Neutrophils Percent Auto 69.5 % (50-75); Platelet Count 276 X10^3/uL (150-400); Red Blood Cell Count 4.78 X10^6/uL (4.0-5.2); Red Cell Distribution Width 14.4 % (11.6-14.8); White Blood Cell Count 9.8 X10^3/uL (4.5-11.0)
[2023-08-10 16:40] LABS: Monotest Negative (Negative)
[2023-08-10 16:58] LABS: Alanine Aminotransferase 130 IU/L (<35); Albumin Globulin Ratio 1.3 (1.0-2.8); Alkaline Phosphatase 99 U/L (38-126); BUN Creatinine Ratio 13.4 (6-22); Bilirubin Total 0.8 mg/dL (0.2-1.3); Blood Urea Nitrogen 9 mg/dL (7-17); C-Reactive Protein Quant 1.9 mg/dL (<1.0); Calcium 10.4 mg/dL (8.4-10.2); Carbon Dioxide 23 mmol/L (22-32); Chloride 101 mmol/L (98-107); Estimated Glomerular Filt Rate > 60 mL/min (>60); Glucose 93 mg/dL (70-100); HEMOLYSIS < 15 (0-50); Lipase 64 U/L (23-300); Potassium 3.9 mmol/L (3.4-5.1); Sodium 138 mmol/L (137-145)
[2023-08-10 17:14] LABS: Erythrocyte Sedimentation Rate 6 MM/HR (0-20)
[2023-08-10 17:16] LABS: Rheumatoid Factor < 8.6 IU/mL (<12.0)
[2023-08-10 17:29] LABS: Appearance Urine UA CLEAR; Color Urine UA YELLOW; Glucose Urine UA NEGATIVE (Negative); Ketones Urine UA 2+ (NEGATIVE); Leukocyte Esterase Urine UA NEGATIVE (NEGATIVE); Nitrite Urine UA NEGATIVE (Negative); Occult Blood Urine UA NEGATIVE (Negative); Protein Urine UA 1+ (Negative)
[2023-08-10 17:31] LABS: Ferritin 30 ng/mL (6-137); TSH w/ Reflex to FT4 2.71 uIU/mL (0.47-4.68)
[2023-08-10 17:41] LABS: Bilirubin Urine UA 1+ (NEGATIVE); pH Urine UA 6.5 (4.5-8.0)
[2023-08-10 17:42] LABS: Bacteria Urine Occasional (0-1); Culture Indicated Urine Cult Not Indicated; Mucus Urine 3+ (Negative); RBC Urine 0-1/HPF (0-5/HPF); Squamous Epithelial Cell Urine 1-5 /HPF (0-5/HPF); WBC Urine 0-1/HPF (0-5/HPF)
[2023-08-11 19:52] LABS: HIV 1 & 2 Ab/Ag 4th Gen Combo NEGATIVE (NEGATIVE)
[2023-08-12 14:26] LABS: CCP Antibodies IgG/IgA 4 units (0-19)
[2023-08-12 15:36] LABS: QuantiFERON Mitogen Value >10.00 IU/mL (.); QuantiFERON Nil Value 0.01 IU/mL (.); QuantiFERON TB Gold Plus Negative (Negative); QuantiFERON TB1 Ag Value 0.02 IU/mL (.); QuantiFERON TB2 Ag Value 0.01 IU/mL (.)
[2023-08-12 16:06] LABS: Aspartate Aminotransferase 45 IU/L (14-36)
[2023-08-12 16:08] LABS: ANA Screen, IFA Negative (.)
== END ==
PROVIDERS: PCP Registered Nurse Diabetes Educator; Referring Provider Registered Nurse Diabetes Educator; Visit Provider Registered Nurse Diabetes Educator
DX: R50.9 Fever, unspecified (principal); R61 Generalized hyperhidrosis; R59.0 Localized enlarged lymph nodes; R10.9 Unspecified abdominal pain; R11.10 Vomiting, unspecified; R63.4 Abnormal weight loss
CPT/HCPCS: 36415; 80053; 81001; 82728; 83690; 84443; 85025; 85651; 86038; 86140; 86200; 86318; 86430; 86480; 87040; 87389

== ENCOUNTER → 2023-08-10 16:25 | Outpatient (CLI) | payer OTHER, SELFPAY ==
[2022-11-07 22:34] VITALS: BMI 39.1
--- NOTE | 2023-08-10 | DI.US.S_ITS ---
PROCEDURE: US SOFT TISSUE HEAD AND NECK INDICATIONS: Cervical lymphadenopathy TECHNIQUE: Real-time scanning was performed of the neck region of interest, with image documentation. COMPARISON: None. FINDINGS: Normal submandibular glands are depicted, which are symmetric, without masses. Multiple bilateral lymph nodes can be seen. The largest 3 are seen on the right measurin x 1.7 x 1 cm 1 x 1.6 x 0.8 cm 1.2 x 1.6 x 1 cm IMPRESSION: Mildly enlarged right cervical lymph nodes are seen. - If these lymph nodes do not regress clinically in 4-6 weeks, please consider follow-up ultrasound with potential ultrasound-guided percutaneous biopsy, if clinically appropriate. Dictated by: Dwayne Murray M.D. on 08/12/2023 at 11:01 Approved by: Dwayne Murray M.D. on 08/12/2023 at 11:02
== END ==
PROVIDERS: PCP Registered Nurse Diabetes Educator; Referring Provider Registered Nurse Diabetes Educator; Visit Provider Registered Nurse Diabetes Educator
DX: R59.0 Localized enlarged lymph nodes (principal); R50.9 Fever, unspecified; R61 Generalized hyperhidrosis; R10.9 Unspecified abdominal pain; R11.10 Vomiting, unspecified; R63.4 Abnormal weight loss
CPT/HCPCS: 36415; 76536; 80053; 81001; 82728; 83690; 84443; 85025; 85651; 86038; 86140; 86200; 86318; 86430; 86480; 87040; 87389

== ENCOUNTER → 2023-08-12 11:52 | Outpatient (CLI) | payer OTHER, SELFPAY ==
[2022-11-07 22:34] VITALS: BMI 39.1
--- NOTE | 2023-08-12 16:24 | DI.US.S_ITS ---
PROCEDURE: US ABDOMEN LIMITED INDICATIONS: relative increase liver enzymes TECHNIQUE: Real-time scanning was performed of the abdominal and retroperitoneal organs, with image documentation. COMPARISON: [facility], CT, CT ABDOMEN PELVIS WITH CONTRAST, 05/23/2023, 12:07. [facility], MR, MR ABDOMEN MRCP, 03/31/2023, 7:11. [facility], US, US ABDOMEN LIMITED, 01/27/2023, 20:44. FINDINGS: Limited examination due to patient's body habitus. Liver: Liver is normal in size and demonstrate heterogeneous increased echotexture. Gallbladder: Surgically removed. Biliary ducts: Intrahepatic bile ducts are non-dilated. Extrahepatic bile duct caliber measures 8 mm. Normal is 6-7 mm or less in diameter, or 10 mm or less post-cholecystectomy. Pancreas: Visualized portions of the pancreas are sonographically normal. Miscellaneous: No free abdominal fluid. IMPRESSION: 1. Diffusely increased hepatic echotexture. This finding is most likely secondary to hepatic fatty infiltration although other hepatocellular disease may have a similar appearance. Recommend clinical correlation. 2. Cholecystectomy. Dictated by: Kajal Avina M.D. on 08/12/2023 at 17:05 Approved by: Kajal Avina M.D. on 08/12/2023 at 19:02
[2023-08-13 18:34] LABS: Free Kappa Lt Chains, Serum 14.7 mg/L (3.3-19.4); Free Lambda Lt Chains,Serum 14.9 mg/L (5.7-26.3)
[2023-08-16 13:37] LABS: Albumin 4.1 g/dL (2.9-4.4); Alpha-1-Globulin 0.3 g/dL (0.0-0.4); Alpha-2-Globulin 0.8 g/dL (0.4-1.0); Gamma Globulin 1.1 g/dL (0.4-1.8); Globulin Total 3.3 g/dL (2.2-3.9); Immunoglobulin A, Serum 210 mg/dL (87-352); Immunoglobulin G,Serum 1148 mg/dL (586-1602); Immunoglobulin M, Serum 70 mg/dL (26-217); Protein, Total 7.4 g/dL (6.0-8.5)
== END ==
LOC: US 11:53
PROVIDERS: PCP Registered Nurse Diabetes Educator; Referring Provider Registered Nurse Diabetes Educator; Visit Provider Registered Nurse Diabetes Educator
DX: R74.8 Abnormal levels of other serum enzymes (principal); R59.0 Localized enlarged lymph nodes; E88.09 Other disorders of plasma-protein metabolism, not elsewhere classified; E83.52 Hypercalcemia; Z90.49 Acquired absence of other specified parts of digestive tract
CPT/HCPCS: 36415; 76705; 82784; 83883; 84155; 84165; 86334

== ENCOUNTER 2023-08-16 14:23 | Emergency (ER) | payer OTHER, SELFPAY ==
[2022-11-07 22:34] VITALS: BMI 39.1
[2023-08-16 14:30] VITALS: BP 161/85; PULSE 97; RESP 18; TEMP 37; O2SAT 97; BMI 42.3
[2023-08-16 14:51] LABS: Add Manual Diff / Slide Review NO; Basophils Absolute Auto 0 /uL (0-100); Basophils Percent Auto 0.4 % (0-2); Eosinophils Absolute Auto 0 /uL (0-450); Eosinophils Percent Auto 0.3 % (2-4); Hematocrit 36.1 % (36-46); Hemoglobin 12.2 g/dL (12.0-16.0); Lymphocytes Absolute Auto 2800 /uL (1100-4500); Lymphocytes Percent Auto 25.3 % (25-40); Mean Corpuscular HGB Conc 33.7 % (30-36); Mean Corpuscular Hemoglobin 29.2 PG (26-34); Mean Corpuscular Volume 86.8 fL (80-100); Monocytes Absolute Auto 600 /uL (0-900); Monocytes Percent Auto 5.7 % (3-14); Neutrophils Absolute Auto 7600 /uL (1500-7000); Neutrophils Percent Auto 68.3 % (50-75); Platelet Count 228 X10^3/uL (150-400); Red Blood Cell Count 4.16 X10^6/uL (4.0-5.2); Red Cell Distribution Width 14.1 % (11.6-14.8); White Blood Cell Count 11.1 X10^3/uL (4.5-11.0)
[2023-08-16 15:13] LABS: Pregnancy Test Urine Negative (Negative)
[2023-08-16 15:18] LABS: Alanine Aminotransferase 34 IU/L (<35); Albumin 4.8 g/dL (3.5-5.0); Albumin Globulin Ratio 1.3 (1.0-2.8); Alkaline Phosphatase 79 U/L (38-126); Aspartate Aminotransferase 23 IU/L (14-36); Bilirubin Total 0.7 mg/dL (0.2-1.3); Blood Urea Nitrogen 8 mg/dL (7-17); Calcium 10.1 mg/dL (8.4-10.2); Carbon Dioxide 20 mmol/L (22-32); Chloride 105 mmol/L (98-107); Estimated Glomerular Filt Rate > 60 mL/min (>60); Globulin 3.7 g/dL (1.7-4.1); Glucose 99 mg/dL (70-100); HEMOLYSIS < 15 (0-50); Lipase 99 U/L (23-300); Potassium 3.5 mmol/L (3.4-5.1); Sodium 138 mmol/L (137-145); Total Protein 8.5 g/dL (6.3-8.2)
[2023-08-16 15:20] LABS: Appearance Urine UA CLOUDY; Color Urine UA YELLOW; Glucose Urine UA NEGATIVE (Negative); Ketones Urine UA 1+ (NEGATIVE); Leukocyte Esterase Urine UA NEGATIVE (NEGATIVE); Nitrite Urine UA NEGATIVE (Negative); Occult Blood Urine UA 1+ (Negative); Protein Urine UA 1+ (Negative)
[2023-08-16 15:54] LABS: Bilirubin Urine UA 1+ (NEGATIVE); pH Urine UA 7.5 (4.5-8.0)
[2023-08-16 15:57] LABS: Bacteria Urine Many (>30); Culture Indicated Urine Specimen Cultured; RBC Urine 1-5/HPF (0-5/HPF); Squamous Epithelial Cell Urine 10-30 /HPF (0-5/HPF); WBC Urine 0-1/HPF (0-5/HPF)
[2023-08-16 16:13] VITALS: BP 160/80; PULSE 92; RESP 18; O2SAT 97
[2023-08-16] MEDS: ONDANSETRON 4 MG/2 ML INJ IV (16:22)
[2023-08-16 17:00] VITALS: BP 140/83; PULSE 111; RESP 17; O2SAT 98
[2023-08-16 18:01] VITALS: BP 142/84; PULSE 116; RESP 18; O2SAT 98
[2023-08-16] MEDS: SODIUM CHLORIDE 0.9% 1,000 ML 1000 ML IV (18:15)
[2023-08-16 18:35] VITALS: BP 147/85; PULSE 120; RESP 18; O2SAT 98
--- NOTE | 2023-08-16 18:41 | ED.NAVMDI ---
HPI - Nausea/Vomiting/Diarrhea General Chief complaint: Nausea/Vomiting/Diarrhea Stated complaint: nausea/vomitting/10 oz of water in the last 2-3day Time Seen by Provider: 08/16/23 17:57 Source: patient Mode of arrival: Ambulatory History of Present Illness HPI Narrative: Patient is a 22-year-old female. Is here for evaluation of nausea and vomiting. Has had very little oral intake over the past couple days. Decreased urine output. She has had issues with her upper abdomen and abdominal pain and vomiting. She has had her gallbladder removed. Has seen GI. Has had endoscopy, colonoscopy. She has had issues post cholecystectomy where she is needed multiple ERCPs secondary to retained gallbladder stones. Has needed stents. Had an issue with a stent and needed to be replaced/repositioned. It has since been removed. She comes to the emergency department today for continued issues. She was very frustrated about her symptoms. Frustrated about not having a diagnosis. She does have a history of bipolar. Has been taking her medicines as directed. Related Data Previous Rx's Medication Instructions Recorded norgestimate 0.25 mg-ethinyl 1 tab PO DAILY #84 tabs 10/27/22 estradiol 35 mcg tablet (Sprintec (28)) bupropion HCl 150 mg 24 hr tablet, 300 mg (2 x 150 mg) PO QAM #180 06/23/23 extended release (Wellbutrin XL) tabs dicyclomine 20 mg tablet 20 mg PO QID PRN abdominal pain 06/23/23 #30 tabs lamotrigine 100 mg tablet 150 mg (1.5 x 100 mg) PO BEDTIME 06/23/23 #135 tabs ondansetron 4 mg disintegrating 4 mg PO Q8H PRN nausea and 08/10/23 tablet vomiting #30 tabs sucralfate 1 gram tablet 1 g PO TID #90 tabs 08/10/23 lorazepam 0.5 mg tablet (Ativan) 0.5 mg PO TID PRN anxiety #14 tabs 08/16/23 Allergies Allergy/AdvReac Type Severity Reaction Status Date / Time latex Allergy Severe skin Verified 08/10/23 14:05 blisters, redness and very itchy medroxyprogesterone AdvReac Severe Severe Verified 08/10/23 14:05 [From Depo-Provera] depression & anxiety; mood swings human papillomavirus AdvReac Intermediate Swelling Verified 08/10/23 14:05 vaccine, 9-valent redness [From Gardasil 9 (PF)] and pain at injection site Review of Systems Constitutional Constitutional: Reports system reviewed and no additional complaints, except as documented Cardiovascular Cardiovascular: Reports system reviewed and no additional complaints, except as documented Respiratory Respiratory: Reports system reviewed and no additional complaints, except as documented Gastrointestinal Gastrointestinal: Reports system reviewed and no additional complaints, except as documented Genitourinary Genitourinary: Reports system reviewed and no additional complaints, except as documented Integumentary/Breasts Skin/Breast: Reports system reviewed and no additional complaints, except as documented Neurologic Neurologic: Reports system reviewed and no additional complaints, except as documented Hematologic/Lymphatic On Anticoagulants: No Patient History Medical History Personal history of COVID-19 Recurrent dislocation of patella, right knee Depression Elevated BP without diagnosis of hypertension Anxiety Head injury Surgical History Status post myringotomy with insertion of tube (10/29/04) Family History Grandmother Age: 75 Hypothyroidism Type 2 diabetes mellitus Mother Age: 46 Polycystic ovaries Obesity Hypothyroidism Grandmother Age: 73 Hypothyroidism Social History household members: significant other Smoking Status: Never smoker alcohol intake: never Smoking Status: Never smoker alcohol intake frequency: 0-2 drinks per day Substance Use Type: marijuana Exam Initial Vital Signs Initial Vital Signs: Vital Signs Temperature 98.6 F 08/16/23 14:30 Pulse Rate 97 H 08/16/23 14:30 Respiratory Rate 18 08/16/23 14:30 Blood Pressure 161/85 H 08/16/23 14:30 Pulse Oximetry 97 08/16/23 14:30 Oxygen Delivery Method Room Air 08/16/23 14:30 Const General: cooperative, comfortable and No ill appearing HENMT Head: normal to inspection and normocephalic Resp Effort & Inspection: normal respiratory effort Auscultation: clear to auscultation bilaterally Cardio Rate: regular rate GI Inspection: normal to inspection and non-distended Palpation: soft Neuro General: patient alert, patient awake and moves all extremities Extrem General: capillary refill normal Psych Mood: anxious mood Course Orders Ordered: ED Orders 08/16/23 14:40 Complete Blood Count AUTO DIFF Stat Comprehensive Metabolic Panel Stat Lipase Stat Test Urine Stat Urinalysis and Microscopic Stat Urine Culture Stat 08/16/23 18:42 MR Ab Pancreatic/MRCP protocol Stat Discontinued Medications Diazepam (Diazepam 10 Mg/2 Ml Syringe) 2 mg IV NOW ONE Stop: 08/16/23 19:00 Last Admin: 08/16/23 19:12 Dose: 2 mg Documented By: JONATHAN Sodium Chloride (Normal Saline 0.9%) 1,000 mls @ 1,000 mls/hr IV BOLUS ONE Stop: 08/16/23 19:00 Last Infusion: 08/16/23 19:10 Dose: Infused Documented By: Admin: 08/16/23 18:15 Dose: 1,000 mls/hr Documented By: REINIER Ondansetron HCl (Ondansetron 4 Mg Odt) 4 mg PO NOW PRN PRN Reason: Nausea And Vomiting Ondansetron HCl (Ondansetron 4 Mg/2 Ml Inj) 4 mg IV NOW PRN PRN Reason: Nausea And Vomiting Last Admin: 08/16/23 16:22 Dose: 4 mg Documented By: REINIER Vital Signs Vital signs: Vital Signs - 8 hr 08/16/23 16:13 08/16/23 17:00 08/16/23 18:01 Pulse Rate 92 H 111 H 116 H Respiratory Rate 18 17 18 Blood Pressure 160/80 H 140/83 142/84 H Pulse Oximetry 97 98 98 Oxygen Delivery Method Room Air Room Air Room Air 08/16/23 18:35 08/16/23 20:55 Pulse Rate 120 H 88 Respiratory Rate 18 18 Blood Pressure 147/85 H 138/76 Pulse Oximetry 98 100 Oxygen Delivery Method Room Air MDM - Nausea/Vomiting/Diarrhea Lab Data Attestation: I reviewed the patient's lab results. 08/16/23 14:40 08/16/23 14:40 Labs: Lab Results 08/16/23 Range/Units 14:40 WBC 11.1 H (4.5-11.0) X10^3/uL RBC 4.16 (4.0-5.2) X10^6/uL Hgb 12.2 (12.0-16.0) g/dL Hct 36.1 (36-46) % MCV 86.8 (80-100) fL MCH 29.2 (26-34) PG MCHC 33.7 (30-36) % RDW 14.1 (11.6-14.8) % Plt Count 228 (150-400) X10^3/uL Neut % (Auto) 68.3 (50-75) % Lymph % (Auto) 25.3 (25-40) % [place] % (Auto) 5.7 (3-14) % Eos % (Auto) 0.3 L (2-4) % Baso % (Auto) 0.4 (0-2) % Neut # (Auto) 7600 H (8611-0110) /uL Lymph # (Auto) 2800 (3286-9182) /uL [place] # (Auto) 600 (0-900) /uL Eos # (Auto) 0 (0-450) /uL Baso # (Auto) 0 (0-100) /uL Sodium 138 (137-145) mmol/L Potassium 3.5 (3.4-5.1) mmol/L Chloride 105 (98-107) mmol/L Carbon Dioxide 20 L (22-32) mmol/L BUN 8 (7-17) mg/dL Creatinine 0.73 (0.52-1.04) mg/dL Estimated GFR > 60 (>60) mL/min BUN/Creatinine Ratio 11.0 (6-22) Glucose 99 (70-100) mg/dL Calcium 10.1 (8.4-10.2) mg/dL Total Bilirubin 0.7 (0.2-1.3) mg/dL AST 23 (14-36) IU/L ALT 34 (<35) IU/L Alkaline Phosphatase 79 (38-126) U/L Total Protein 8.5 H (6.3-8.2) g/dL Albumin 4.8 (3.5-5.0) g/dL Globulin 3.7 (1.7-4.1) g/dL Albumin/Globulin Ratio 1.3 (1.0-2.8) Lipase 99 D (23-300) U/L Urine Color Yellow Urine Appearance Cloudy Urine pH 7.5 (4.5-8.0) Ur Specific [place] 1.010 (1.000-1.035) Urine Protein 1+ H (Negative) Urine Glucose (UA) Negative (Negative) g/dL Urine Ketones 1+ H (NEGATIVE) Urine Occult Blood 1+ H (Negative) Urine Nitrate Negative (Negative) Urine Bilirubin 1+ H (NEGATIVE) Ur Bilirubin Confirm Cancelled Urine Urobilinogen 1.0 (0.2) E.U./dL Ur Leukocyte Esterase Negative (NEGATIVE) Urine RBC 1-5/hpf (0-5/HPF) Urine WBC 0-1/hpf (0-5/HPF) Ur Squamous Epith Cells 10-30 /hpf H D (0-5/HPF) Urine Bacteria Many (>30) H (None) Ur Culture Indicated? Specimen cultured Urine Test Negative (Negative) ECG Data Interpretation: PROCEDURE: MR AB PANCREATIC/MRCP PROTOCOL INDICATIONS: hx of retained stones after GB removal TECHNIQUE: Coronal HASTE through the abdomen, axial 2-D FLASH in- and [id number], and breath-hold T2 FSE with fat saturation through the biliary system and pancreas. Oblique coronal and axial thin-slice HASTE, radial thick-slab HASTE centered on the extrahepatic bile ducts. Intravenous secretin: Not requested. COMPARISON: [facility], US, US ABDOMEN LIMITED, 08/12/2023, 16:34. [facility], CT, CT ABDOMEN PELVIS WITH CONTRAST, 05/23/2023, 12:07. [facility], MR, MR ABDOMEN MRCP, 03/31/2023, 7:11. FINDINGS: Image quality: Mostly diagnostic, however the MRCP series is degraded by motion. Lower chest: No basal effusions. The lungs are not well evaluated on MRI. Heart size is within normal limits where visualized Liver: Unremarkable. No suspicious hypervascular lesion. Gallbladder and biliary system: The gallbladder is absent. The CBD is nondilated. No filling defects are seen. Pancreas: No suspicious focal lesion or ductal dilation Spleen: Nonenlarged Adrenals: No discrete nodule Kidneys: No solid mass or hydronephrosis. Vessels and lymph nodes: No abdominal aortic aneurysm. The main portal vein appears patent. No pathologic lymphadenopathy by size criteria. Bowel and peritoneum: The partially visualized bowel loops are nondilated. There is no pathologic ascites. Body wall: Unremarkable Bones: No acute or suspicious osseous finding. IMPRESSION: The gallbladder is absent. The CBD and pancreatic duct are nondilated, without filling defect. No acute abnormality identified on MRI. Consider ERCP if there is further clinical concern. [facility] Narrative Medical decision making narrative: LFTs today and lipase are unremarkable. Patient is not having UTI symptoms. Will wait for culture to result. MRCP ordered which showed no acute pathology. Tried to provide reassurance to the patient regarding this. I do not feel a need for a CT scan or ultrasound. Patient is obviously having quite a bit of anxiety related to the symptoms. Had what I would describe as a panic attack in the room as we discussed her symptoms. She has been taking her bupropion and lamotrigine. I do feel that she is getting into cycles where she was getting abdominal pain and vomiting and then she becomes anxious about these symptoms which then makes all of her other symptoms worse. The plan will be is to prescribe her a short course of Ativan. Advised that she stick with the nausea medicine such as Zofran to begin with but then she starts to get anxiety she can take the Ativan. This potentially could help with her nausea and also the anxiety. This discussion was had with family at bedside. Will discharge patient home with return precautions and instructions to follow up with primary doctor and also GI provider. Expressed understanding and agreement with plan. Discharge Plan Departure Patient Disposition: Home Clinical Impression: Nausea Instructions: DI for Abdominal Pain-Adult, DI for Nausea -- Adult Activity Restrictions/Additional Instructions: Continue to take all of your medications as directed. I do recommend that if you start to get the nausea that you take your normal nausea medicine. If this leads to worsening nausea and anxiety than you can take the lorazepam/Ativan as needed. If this seems to help then you may want to talk with your primary doctor about potentially further treatment with a similar medicine. Keep all of your scheduled medical appointments. Return to the emergency department for new symptoms Prescriptions: New lorazepam [Ativan] 0.5 mg tablet 0.5 mg PO TID PRN (Reason: anxiety) Qty: 14 0RF No Action norgestimate-ethinyl estradiol [Sprintec (28)] 0.25-35 mg-mcg tablet 1 tab PO DAILY Qty: 84 3RF bupropion HCl [Wellbutrin XL] 150 mg tablet extended release 24 hr 300 mg PO QAM Qty: 180 1RF lamotrigine 100 mg tablet 150 mg PO BEDTIME Qty: 135 1RF dicyclomine 20 mg tablet 20 mg PO QID PRN (Reason: abdominal pain) Qty: 30 3RF sucralfate 1 gram tablet 1 g PO TID Qty: 90 1RF Rx Instructions: Take on an empty stomach, 1 hour before meals ondansetron 4 mg tablet,disintegrating 4 mg PO Q8H PRN (Reason: nausea and vomiting) Qty: 30 1RF Referrals: Roc Guy ARNP [Primary Care Provider] - Stand Alone Forms: Patient Portal/API
[2023-08-16] MEDS: diazePAM 10 MG/2 ML SYRINGE 2 MG IV (19:12)
[2023-08-16 20:55] VITALS: BP 138/76; PULSE 88; RESP 18; O2SAT 100
== END 2023-08-16 20:57 | disposition home or self-care (01) ==
PROVIDERS: Emergency Medicine; Emergency Provider Emergency Medicine; PCP Registered Nurse Diabetes Educator
DX: R11.2 Nausea with vomiting, unspecified (principal); R10.9 Unspecified abdominal pain
CPT/HCPCS: 36415; 74183; 80053; 81001; 81025; 83690; 85025; 87086; 96361; 96374; 96375; 99284; A9579; J2405; J3360

== ENCOUNTER → 2023-09-02 11:45 | Outpatient (CLI) | payer OTHER, SELFPAY ==
[2022-11-07 22:34] VITALS: BMI 39.1
--- NOTE | 2023-09-02 11:46 | DI.CT.S_ITS ---
PROCEDURE: CT CHEST ABD PEL W CON INDICATIONS: eval fever, sweats, abdominal pain, dyspnea TECHNIQUE: After the administration of intravenous contrast, 5 mm thick sections acquired from the lung apices to the symphysis. 5 mm coronal and sagittal reformats were performed, with additional 7 mm MIP reformats through the lungs. For radiation dose reduction, the following was used: automated exposure control, adjustment of mA and/or kV according to patient size. COMPARISON: [facility], CT, CT ABDOMEN PELVIS WITH CONTRAST, 05/23/2023, 12:07. FINDINGS: Image quality: Excellent. CHEST: Lower Neck: No enlarged lymph nodes. Thyroid: No thyroid nodules which require sonographic follow up, per consensus guidelines. Axillae: No enlarged lymph nodes. Chest Wall: Unremarkable. Lungs and Pleura: No pneumothorax or pleural effusions. No consolidation or suspicious nodules. Heart: Heart size is normal. No pericardial effusion. Thoracic Vessels: The aorta and pulmonary arteries demonstrate normal size. Mediastinum and Hilaria: No enlarged lymph nodes. Esophagus: No wall thickening. No hiatal hernia. ABDOMEN: Liver: No solid mass. Gallbladder: Surgically absent. Biliary ducts: No biliary dilation. Pancreas: No ductal dilation. Spleen: Size is within normal limits. Adrenal Glands: No adrenal nodules. Kidneys and Ureters: No hydronephrosis. No solid mass. No complex renal cystic lesion which requires follow up. Stomach and Bowel: Normal colonic caliber, without significant wall thickening. The appendix is thin walled and gas filled. Peritoneum: No abnormal intraperitoneal fluid. No free air. Ventral Wall: No hernia. Abdominal Nodes: No retroperitoneal or mesenteric adenopathy by size criteria. Vessels: Aorta and inferior vena cava are normal in size. PELVIS: Pelvic Organs: Unremarkable. Bladder: Unremarkable. Pelvic Nodes: No enlarged lymph nodes. Miscellaneous: No inguinal hernias are seen. Bones: Unremarkable. IMPRESSION: 1. No acute intra-abdominal findings. Normal appendix. 2. No findings to explain patient's symptoms. Dictated by: Jahaira Villegas M.D. on 09/02/2023 at 13:24 Approved by: Jahaira Villegas M.D. on 09/02/2023 at 13:30
== END ==
LOC: CT 11:46
PROVIDERS: PCP Registered Nurse Diabetes Educator; Referring Provider Registered Nurse Diabetes Educator; Visit Provider Registered Nurse Diabetes Educator
DX: R50.9 Fever, unspecified (principal); R61 Generalized hyperhidrosis; R10.9 Unspecified abdominal pain; R06.00 Dyspnea, unspecified
CPT/HCPCS: 71260; 74177; Q9967

== ENCOUNTER → 2023-09-23 12:08 | Outpatient (CLI) | payer OTHER, SELFPAY ==
[2022-11-07 22:34] VITALS: BMI 39.1
[2023-09-13 17:10] VITALS: BMI 39.1
--- NOTE | 2023-09-23 12:09 | DI.US.S_ITS ---
PROCEDURE: US SOFT TISSUE HEAD AND NECK INDICATIONS: reeval R cervical lymph node enlargement TECHNIQUE: Real-time scanning was performed of the neck region of interest, with image documentation. COMPARISON: [facility], , US SOFT TISSUE HEAD AND NECK, 08/10/2023, 16:32. FINDINGS: Bilateral lymph nodes. The more superior node on the right measures 1.7 x 1.0 x 0.5 cm compared to 1.6 x 1.2 x 0.9 cm. The mid right neck node measures 1.8 x 1.3 x 0.8 cm compared to 1.6 x 1.0 x 0.8 cm. The more right inferior node measures 1.5 x 0.9 x 0.7 cm compared to 1.4 x 1.0 x 1.0 cm. There is a new left-sided node measuring 2.3 x 1.0 x 1.0 cm. There is loss of fatty hilum. IMPRESSION: Right-sided lymph nodes demonstrate no interval increase in size. New left-sided mildly prominent lymph node is present with loss of fatty hilum. Close interval follow-up is recommended. Dictated by: Anahi Aden M.D. on 09/23/2023 at 16:30 Approved by: Anahi Aden M.D. on 09/23/2023 at 16:33
== END ==
LOC: US 12:09
PROVIDERS: PCP Registered Nurse Diabetes Educator; Referring Provider Registered Nurse Diabetes Educator; Visit Provider Registered Nurse Diabetes Educator
DX: R59.0 Localized enlarged lymph nodes (principal)
CPT/HCPCS: 76536

== ENCOUNTER → 2023-10-13 08:08 | Outpatient (CLI) | payer OTHER, SELFPAY ==
[2023-09-13 17:10] VITALS: BMI 39.1
--- NOTE | 2023-10-13 08:30 | DI.US.S_ITS ---
PROCEDURE: US SOFT TISSUE HEAD AND NECK INDICATIONS: reeval TECHNIQUE: Real-time scanning was performed of the neck region of interest, with image documentation. COMPARISON: [facility], , US SOFT TISSUE HEAD AND NECK, 09/23/2023, 12:26. FINDINGS: Redemonstration of multiple lymph nodes throughout the neck. Right neck: Lymph node 1. Measures 2.0 x 0.8 x 1.1 cm, previously 1.5 x 0.7 x 0.9 cm. Lymph node 2. Measures 1.4 x 0.7 x 0.6 cm, previously 1.8 x 0.8 x 1.3 cm. Lymph node 3. Measures 1.6 x 0.5 x 0.5 cm, previously 1.7 x 0.5 x 1.0 cm. Left neck: Lymph node measures 2.3 x 1.3 x 1.0 cm, previously 2.3 x 1.0 x 1.0 cm. IMPRESSION: Bilateral lymph nodes as above, some which are mildly increased or decreased in size compared to prior. Dictated by: Ilir Short M.D. on 10/13/2023 at 11:16 Approved by: Ilir Short M.D. on 10/13/2023 at 11:20
[2023-10-16 08:38] LABS: Deamidated Gliadin Ab IgA 2 units (0-19); Deamidated Gliadin Ab IgG 1 units (0-19); Immunoglobulin A,Qn 185 mg/dL (87-352); t-Transglutaminase IgA <2 U/mL (0-3)
== END ==
LOC: US 08:08
PROVIDERS: PCP Registered Nurse Diabetes Educator; Referring Provider Registered Nurse Diabetes Educator; Visit Provider Registered Nurse Diabetes Educator
DX: R59.1 Generalized enlarged lymph nodes (principal); R63.4 Abnormal weight loss; R10.9 Unspecified abdominal pain
CPT/HCPCS: 36415; 76536; 82784; 83516

== ENCOUNTER → 2024-10-12 17:40 | Outpatient (CLI) | payer OTHER, SELFPAY ==
[2023-09-13 17:10] VITALS: BMI 39.1
[2024-10-12 18:24] LABS: Influenza A - CEPHEID Flu A NEGATIVE (NEGATIVE); Influenza B - CEPHEID Flu B NEGATIVE (NEGATIVE); Respiratory Syncytial Virus Negative (Negative)
[2024-10-12 18:25] LABS: COVID-19 CEPHEID 4-PLEX PCR Negative (Negative)
== END ==
LOC: LAB 17:40
PROVIDERS: PCP Registered Nurse Diabetes Educator; Visit Provider Nurse Practitioner Family
DX: R05.1 Acute cough (principal)
CPT/HCPCS: 0241U

== ENCOUNTER → 2025-01-27 10:35 | Outpatient (CLI) | payer OTHER, SELFPAY ==
[2023-09-13 17:10] VITALS: BMI 39.1
[2025-01-27 11:54] LABS: COVID-19 CEPHEID 4-PLEX PCR Negative (Negative); Influenza A - CEPHEID Flu A NEGATIVE (NEGATIVE); Influenza B - CEPHEID Flu B NEGATIVE (NEGATIVE); Respiratory Syncytial Virus Negative (Negative)
== END ==
PROVIDERS: PCP Registered Nurse Diabetes Educator; Visit Provider Nurse Practitioner Family
DX: J02.9 Acute pharyngitis, unspecified (principal); R52 Pain, unspecified
CPT/HCPCS: 0241U; 87070